=== PATIENT | male | born 1950 | race Caucasian/White ===

== ENCOUNTER 2017-10-15 18:56 | Emergency (ER) | payer OTHER ==
[2017-10-15] MEDS: AUGMENTIN 875 MG TAB PO (20:42)
[2017-10-15 20:53] LABS: BASO # 0.1 10^3/uL (0.0-0.2); BASO % 0.7 % (0.0-1.0); EOS # 0.3 10^3/uL (0.0-0.50); EOS % 2.5 % (0.0-3.0); HEMATOCRIT 40.6 % (42.0-52.0); IMMATURE GRANULOCYTE % 0.3 % (0-3.0); LYMPH # 3.6 10^3/uL (1.5-4.5); LYMPH % 34.8 % (24.0-44.0); MEAN CORPUSCULAR HEMOGLOBIN 30.2 pg (27.0-33.0); MEAN CORPUSCULAR HGB CONC 34.5 g/dl (32.0-36.5); MEAN CORPUSCULAR VOLUME 87.5 fl (80.0-96.0); MONO # 0.6 10^3/uL (0.0-0.8); MONO % 5.9 % (0.0-5.0); NEUTROPHILS # 5.8 10^3/uL (1.8-7.7); NEUTROPHILS % 55.8 % (36.0-66.0); PLATELET COUNT, AUTOMATED 245 10^3/uL (150-450); RED BLOOD COUNT 4.64 10^6/uL (4.30-6.10); RED CELL DISTRIBUTION WIDTH 12.6 % (11.5-14.5); WHITE BLOOD COUNT 10.4 10^3/uL (4.0-10.0)
[2017-10-15 21:15] LABS: ANION GAP 6 MEQ/L (8-16); BLOOD UREA NITROGEN 14 MG/DL (7-18); C REACTIVE PROTEIN QUANTITATIV 0.31 MG/DL (0.00-0.30); CALCIUM LEVEL 8.4 MG/DL (8.8-10.2); CARBON DIOXIDE LEVEL 31 MEQ/L (21-32); CHLORIDE LEVEL 104 MEQ/L (98-107); CREATININE FOR GFR 0.96 MG/DL (0.70-1.30); GLOMERULAR FILTRATION RATE > 60.0 (>49); GLUCOSE, FASTING 97 MG/DL (70-100); POTASSIUM SERUM 4.1 MEQ/L (3.5-5.1); SODIUM LEVEL 141 MEQ/L (136-145)
[2017-10-15 21:18] LABS: ERYTHROCYTE SEDIMENTATION RATE 9 mm/hr (0-20)
== END 2017-10-15 20:49 | disposition home or self-care (01) ==
LOC: M ED 18:56
DX: T81.4XXA Infection following a procedure, initial encounter (principal); C45.9 Mesothelioma, unspecified; I10 Essential (primary) hypertension; J44.9 Chronic obstructive pulmonary disease, unspecified; F17.210 Nicotine dependence, cigarettes, uncomplicated; Z85.828 Personal history of other malignant neoplasm of skin; Z79.899 Other long term (current) drug therapy
CPT/HCPCS: 80048

== ENCOUNTER → 2018-04-04 | Outpatient (REF) | payer OTHER ==
[2018-04-04 14:04] LABS: APPEARANCE, URINE CLEAR (CLEAR); BACTERIA, URINE AUTO NEGATIVE (NEGATIVE); BILIRUBIN, URINE AUTO NEGATIVE (NEGATIVE); BLOOD, URINE BLOOD NEGATIVE (NEGATIVE); COLOR, URINE YELLOW (YELLOW); GLUCOSE, URINE (UA) AUTO NEGATIVE (NEGATIVE); KETONE, URINE AUTO NEGATIVE (NEGATIVE); LEUKOCYTE ESTERASE, URINE AUTO NEGATIVE (NEGATIVE); NITRITE, URINE AUTO NEGATIVE (NEGATIVE); PROTEIN, URINE AUTO NEGATIVE (NEGATIVE); RBC, URINE AUTO 0 /HPF (0-3); SPECIFIC GRAVITY URINE AUTO 1.005 (1.002-1.035); SQUAMOUS EPITHELIAL CELL UR AU 0 /HPF (0-6); UROBILINOGEN, URINE AUTO 0.2 mg/dL (0.0-2.0); WBC, URINE AUTO 0 /HPF (0-3)
== END ==
LOC: M SMT 13:30
DX: R31.29 Other microscopic hematuria (principal)
CPT/HCPCS: 81001

== ENCOUNTER → 2018-05-10 | Outpatient (CLI) | payer OTHER ==
[~2018-05-10] MED LIST: ASPI1TAB PO; AUGM500T34 PO; BLOOD PRESSURE PO; BUSP5TA; HYDR-2808 PO; HYDR-3713 PO; HYDR12CA PO; LIPI80TA; MULT1TAB10 PO; OMEP20CA3 PO
--- NOTE | 2018-05-10 10:44 | REP ---
Prostate sonography: History: Elevated PSA Sonographic findings: Trans rectal prostate sonography demonstrates unremarkable seminal vesicles. Prostate gland is heterogeneously enlarged with calcifications and cystic changes noted. Glandular dimensions are measured at 4.6 x 3.0 x 4.7 cm with a calculated glandular volume of 34.2 ml. There is a 0.9 cm nodule and a 1.4 cm nodule to the right of midline. Transrectal sonographic guidance provided to Dr. Duff who performed trans rectal ultrasound guided needle biopsy procedure . Electronically Signed by Jatinder Markham MD 05/10/2018 10:35 A
== END ==
LOC: M SMT PRO 08:39 → M SMT 08:39
PROVIDERS: ATTEND Nurse Practitioner Women's Health
DX: C61 Malignant neoplasm of prostate (principal); R97.20 Elevated prostate specific antigen [PSA]
CPT/HCPCS: 52000; 55700; 76872; 76942; G0416

== ENCOUNTER → 2018-05-18 | Outpatient (REF) | payer OTHER ==
[2018-05-18 18:45] LABS: ANION GAP 4 MEQ/L (8-16); BLOOD UREA NITROGEN 18 MG/DL (7-18); CALCIUM LEVEL 8.7 MG/DL (8.8-10.2); CARBON DIOXIDE LEVEL 31 MEQ/L (21-32); CHLORIDE LEVEL 108 MEQ/L (98-107); CREATININE FOR GFR 0.98 MG/DL (0.70-1.30); GLOMERULAR FILTRATION RATE > 60.0 (>49); GLUCOSE, FASTING 86 MG/DL (70-100); POTASSIUM SERUM 4.2 MEQ/L (3.5-5.1); SODIUM LEVEL 143 MEQ/L (136-145)
[2018-05-18 18:54] LABS: HEMOGLOBIN 13.9 g/dl (13.5-17.5); MEAN CORPUSCULAR HEMOGLOBIN 30.5 pg (27.0-33.0); MEAN CORPUSCULAR HGB CONC 33.9 g/dl (32.0-36.5); MEAN CORPUSCULAR VOLUME 89.9 fl (80.0-96.0); PLATELET COUNT, AUTOMATED 233 10^3/uL (150-450); RED BLOOD COUNT 4.56 10^6/uL (4.30-6.10); RED CELL DISTRIBUTION WIDTH 12.6 % (11.5-14.5); WHITE BLOOD COUNT 10.3 10^3/uL (4.0-10.0)
[2018-05-18 19:07] LABS: INR 0.95; PROTHROMBIN TIME 12.8 SECONDS (12.1-14.4)
[2018-05-18 19:08] LABS: PARTIAL THROMBOPLASTIN TIME 27.8 SECONDS (25.4-37.6)
== END ==
LOC: M LABSMT 13:11
DX: Z01.818 Encounter for other preprocedural examination (principal); D49.4 Neoplasm of unspecified behavior of bladder; N39.0 Urinary tract infection, site not specified
CPT/HCPCS: 80048

== ENCOUNTER 2018-05-31 12:39 | Day surgery (SDC) | payer OTHER, MEDICARE ==
[~2018-05-31 12:39] MED LIST changes: -ASPI1TAB PO; -AUGM500T34 PO; -BLOOD PRESSURE PO; -BUSP5TA; -HYDR-2808 PO; -HYDR-3713 PO; -HYDR12CA PO; +LIDOCAINE 1% MDV 20ML VIAL SQ; -LIPI80TA; -MULT1TAB10 PO; -OMEP20CA3 PO
[2018-05-31] MEDS: LR 1,000 ML IV (14:09)
[2018-05-31] MEDS ORDERED: PROPOFOL 200 MG/20 ML VIAL As Ordered (15:24)
[2018-05-31] MEDS ORDERED: ROCURONIUM BROMIDE 50 MG/5 ML VIAL As Ordered (15:24)
[2018-05-31] MEDS ORDERED: ONDANSETRON 4MG/2ML VIAL (J2405) As Ordered (15:24)
[2018-05-31] MEDS ORDERED: LIDOCAINE 2% INJ 100 MG/5 ML SDV (FOR ANES.) As Ordered (15:24)
[2018-05-31] MEDS ORDERED: dexameTHASONE 4 MG/ML 1ML VIAL (J1100) As Ordered (15:24)
[2018-05-31] MEDS ORDERED: fentaNYL 100 MCG/2 ML INJECTION (J3010) As Ordered ×2 (15:25→16:18)
[2018-05-31] MEDS ORDERED: MIDAZOLAM INJ 2 MG/2 ML VIAL (J2250) As Ordered (15:25)
[2018-05-31] MEDS ORDERED: KETOROLAC 60 MG/2 ML VIAL (J1885) As Ordered (16:54)
[2018-05-31] MEDS ORDERED: LR 1,000 ML IV (17:30)
[2018-05-31] MEDS ORDERED: ONDANSETRON 4MG/2ML VIAL (J2405) IV (17:30)
[2018-05-31] MEDS ORDERED: ACETAMINOPHEN TAB 650MG DOSE (2X325MG) PO (17:30)
[2018-05-31] MEDS ORDERED: PERCOCET 5MG/325MG TAB PO (17:30)
[2018-05-31] MEDS ORDERED: fentaNYL 100 MCG/2 ML INJECTION (J3010) IV (17:30)
[2018-05-31] MEDS ORDERED: HYDROMORPHONE HCL 0.5 MG/ 0.5 ML SYRINGE (J1170 PER 1) IV (17:30)
== END 2018-05-31 19:15 | disposition home or self-care (01) ==
LOC: M SDC 19:15
DX: C67.9 Malignant neoplasm of bladder, unspecified (principal); I10 Essential (primary) hypertension; E78.00 Pure hypercholesterolemia, unspecified; K21.9 Gastro-esophageal reflux disease without esophagitis; R29.898 Other symptoms and signs involving the musculoskeletal system; M12.9 Arthropathy, unspecified; M54.9 Dorsalgia, unspecified; F41.9 Anxiety disorder, unspecified; F32.9 Major depressive disorder, single episode, unspecified; J41.0 Simple chronic bronchitis; G47.9 Sleep disorder, unspecified; C61 Malignant neoplasm of prostate; Z79.899 Other long term (current) drug therapy; Z79.82 Long term (current) use of aspirin; Z72.0 Tobacco use
CPT/HCPCS: 52234

== ENCOUNTER 2018-07-07 06:48 | Inpatient (IN) | payer OTHER, MEDICARE ==
[2018-07-07] VITALS (8 sets, daily range): BP systolic 124–142; BP diastolic 69–77
[~2018-07-07] VITALS: Ht 175.3 cm; Wt 72.9 kg
[~2018-07-07 06:48] MED LIST changes: +ASPI1TAB PO; +AUGM500T34 PO; +BLOOD PRESSURE PO; +BUSP5TA PO; +ECOT325T5 PO; +FERR325T3 PO; +HYDR-2808 PO; +HYDR-3713 PO; +HYDR12CA PO; -LIDOCAINE 1% MDV 20ML VIAL SQ; +LIPI80TA PO; +MULT1TAB10 PO; +OMEP20CA3 PO
[2018-07-07] MEDS ORDERED: LR 1,000 ML IV ONE (07:00)
[2018-07-07] MEDS ORDERED: HEPARIN SOD (PORCINE) 5000 UNITS/ML VIAL SQ ONE (07:00)
[2018-07-07] MEDS ORDERED: ROCURONIUM BROMIDE 50 MG/5 ML VIAL As Ordered ONE ×3 (07:45→11:18)
[2018-07-07] MEDS ORDERED: MIDAZOLAM INJ 2 MG/2 ML VIAL (J2250) As Ordered ONE (07:45)
[2018-07-07] MEDS ORDERED: HYDROmorphone HCL 2 MG/ML 1ML VIAL (J1170) As Ordered ONE (07:45)
[2018-07-07] MEDS ORDERED: fentaNYL 250 MCG/5 ML INJECTION (J3010) As Ordered ONE (07:45)
[2018-07-07] MEDS ORDERED: LIDOCAINE 2% INJ 100 MG/5 ML SDV (FOR ANES.) As Ordered ONE (07:45)
[2018-07-07] MEDS ORDERED: PROPOFOL 200 MG/20 ML VIAL As Ordered ONE (07:45)
[2018-07-07] MEDS ORDERED: dexameTHASONE 4 MG/ML 1ML VIAL (J1100) As Ordered ONE (07:46)
[2018-07-07] MEDS ORDERED: ONDANSETRON 4MG/2ML VIAL (J2405) As Ordered ONE (07:46)
[2018-07-07] MEDS ORDERED: PERCOCET 5MG/325MG TAB PO PRN (08:30)
[2018-07-07] MEDS ORDERED: MORPHINE 4 MG/ML 1ML VIAL/SYRINGE (J2270) IV PRN (08:30)
[2018-07-07] MEDS ORDERED: ONDANSETRON 4MG/2ML VIAL (J2405) IV PRN ×3 (08:30→19:45)
[2018-07-07] MEDS ORDERED: BUPIVACAINE HCL 0.25% 30 ML VIAL As Ordered ONE (08:38)
[2018-07-07] MEDS ORDERED: LIDOCAINE 1% SDV INJ 30 ML VIAL As Ordered ONE (08:38)
[2018-07-07] MEDS: DOCUSATE SODIUM 100 MG CAP PO SCH ×2 (09:00→20:04)
[2018-07-07] MEDS ORDERED: HEPARIN SOD (PORCINE) 5000 UNITS/ML VIAL As Ordered ONE (09:14)
[2018-07-07] MEDS ORDERED: LABETALOL HCL 100 MG/20 ML VIAL As Ordered ONE (09:15)
[2018-07-07] MEDS ORDERED: SUGAMMADEX SODIUM 500 MG/5 ML VIAL (BRIDION) As Ordered ONE (13:40)
[2018-07-07] MEDS: HEPARIN SOD (PORCINE) 5000 UNITS/ML VIAL SC SCH ×2 (14:00→20:04)
[2018-07-07] MEDS ORDERED: fentaNYL 100 MCG/2 ML INJECTION (J3010) As Ordered ONE (14:53)
[2018-07-07] MEDS: fentaNYL 100 MCG/2 ML INJECTION (J3010) IV PRN ×4 (14:55→15:30)
[2018-07-07] MEDS ORDERED: LR 1,000 ML IV SCH ×2 (15:00→19:45)
--- NOTE | 2018-07-07 15:16 | ROOPDOC ---
[facility] Report Of Operation Report of Operation DATE OF PROCEDURE: 07/07/18 PREPROCEDURE DIAGNOSIS: Prostate cancer. POSTPROCEDURE DIAGNOSIS: Prostate cancer. PROCEDURE: Robotic-assisted laparoscopic radical prostatectomy with bilateral pelvic lymph node dissection, Lysis of adhesions. SURGEON: Dilma Adorno MD FIRST AID TEACHER: Emily Giron NP ANESTHESIA: General. OPERATIVE INDICATIONS: This is a 68 year old M with clinical stage T2b Shantel 4+3 prostate cancer, here today for treatment. DESCRIPTION OF PROCEDURE: The patient was brought to the operating room and general anesthesia was induced. Prophylactic antibiotics were infused. He was then placed in the dorsal lithotomy position and prepped and draped in the usual sterile fashion. At this point, a Huynh catheter was inserted into the bladder and the balloon was filled with 10 mL of sterile water. We then made a midline incision just above the umbilicus for a 12 mm port. A Veress needle was utilized to achieve pneumoperitoneum. Next, a 12 mm port was inserted into the incision and subsequently a camera was inserted. There were no injuries from the Veress needle or initial trocar placement. At this point, we placed the remaining ports, including a 12 mm health assistant port and then three robotic ports in the usual W configuration. Once all the ports were placed, the robot was docked. Lysis of adhesions between the sigmoid colon and abdominal wall was then performed. The bladder was then released from the anterior abdominal wall using electrocautery. Releasing the bladder took a significant amount of time as the bladder was adhesed bilateral to mesh placed during the patient's prior inguinal hernia repair. Once the bladder was dropped, the fat overlying the prostate was cleared using electrocautery. Next, the superficial dorsal vein was controlled with electrocautery. The endopelvic fascia was opened on both sides and the dorsal venous complex was cleared. Next, a #0 Vicryl [id number] stitch was placed around the dorsal venous complex. Once that was done, the bladder was opened and dissected away from the prostate. At this point, the prostate was lifted up. The vasa deferentia were identified in the midline. They were controlled with electrocautery and then transected. The seminal vesicles were also dissected off bilaterally. The rectum was safely mobilized away from the prostate. The patient opted not to have a nerve-sparing procedure. At this point, bilateral prostatic pedicles and neurovascular bundles with Weck clips and were then transected. The pedicles were carried towards the apex. After taking care of the pedicles and mobilizing the rectum off the prostate below, the prostate was only connected by the urethra. At this point, the dorsal venous complex was transected with electrocautery. The urethra was then opened and the catheter was withdrawn and the posterior urethra was transected, thus freeing the prostate. At this point, we checked for hemostasis and it did appear very good. Next, we performed bilateral pelvic lymph node dissection. This was done in a standard fashion. The limits of dissection were the iliac vein proximally, the obturator nerve distally, the pelvic sidewall laterally, and the bladder medially. All lymphatic tissue within these limits was removed. I performed the same procedure on both the right and left sides. Hemostasis was then obtained with a combination of bipolar electrocautery and Weck clips. The lymphatic packets were then placed in separate Endo Catch bags for future retrieval. Once hemostasis was confirmed, I then moved on to perform the vesicourethral anastomosis. This was performed with a Quill stitch in a running fashion. Of note, this was very difficult because of a very narrow pelvis. Once this was done, the final #20-Nigerien Huynh catheter was placed. The balloon was filled with 15 mL of sterile water. Upon completion of the vesicourethral anastomosis, it was tested by filling the bladder with 120 mL of sterile water and it was watertight. At this point, the prostate and seminal vesicles were placed in an Endo Catch bag for future retrieval. The robot was then undocked. A Tamika fascial closure device was utilized to place a #0 Vicryl suture between the fascia of the 12 mm health assistant port. At this point, a Cesar- Rudd drain was brought in through the left robotic port skin site and the drain was positioned anterior to the bladder. The drain was secured to the skin with #2-0 Ethilon suture. Next, all the remaining ports were removed and there did not appear to be any bleeding from any of the port sites. The prostate, as well as the lymphatic packets were then extracted from the 12 mm camera port site after the skin was extended. The fascia in this incision was then closed with a running #0 Vicryl stitch. The previously placed #0 Vicryl free ties through the health assistant port were then tied down and all incisions were irrigated. Last, all of the incisions were closed with running subcuticular #4-0 Monocryl sutures. Local anesthesia was applied. Dermabond was then applied to the incisions. This marked the conclusion of the procedure. The patient was then taken out of the dorsal lithotomy position, awakened from anesthesia and transported to the recovery room in stable condition. ESTIMATED BLOOD LOSS: 300 mL. COMPLICATIONS: None. SPECIMENS: Prostate and seminal vesicles, right pelvic lymph nodes, left pelvic lymph nodes. PLAN: The patient will be admitted to the hospital postoperatively, and he will likely be discharged home within the next 1-2 days. DILMA ADORNO MD Jul 07, 2018 15:16
[2018-07-07] MEDS ORDERED: MORPHINE 10 MG/ML 1ML VIAL (J2270) As Ordered ONE (15:39)
[2018-07-07] MEDS: MORPHINE 10 MG/ML 1ML VIAL (J2270) IV PRN ×5 (15:44→16:35)
[2018-07-07 15:51] LABS: HEMATOCRIT 39.3 % (42.0-52.0); HEMOGLOBIN 13.1 g/dl (13.5-17.5); MEAN CORPUSCULAR HEMOGLOBIN 30.4 pg (27.0-33.0); MEAN CORPUSCULAR HGB CONC 33.3 g/dl (32.0-36.5); MEAN CORPUSCULAR VOLUME 91.2 fl (80.0-96.0); PLATELET COUNT, AUTOMATED 199 10^3/uL (150-450); RED BLOOD COUNT 4.31 10^6/uL (4.30-6.10); WHITE BLOOD COUNT 18.1 10^3/uL (4.0-10.0)
[2018-07-07 16:06] LABS: BLOOD UREA NITROGEN 18 MG/DL (7-18); CALCIUM LEVEL 8.1 MG/DL (8.8-10.2); CARBON DIOXIDE LEVEL 28 MEQ/L (21-32); CHLORIDE LEVEL 107 MEQ/L (98-107); CREATININE FOR GFR 1.05 MG/DL (0.70-1.30); GLOMERULAR FILTRATION RATE > 60.0 (>42); GLUCOSE, FASTING 157 MG/DL (70-100); POTASSIUM SERUM 4.3 MEQ/L (3.5-5.1); SODIUM LEVEL 140 MEQ/L (136-145)
[2018-07-07] MEDS: NS 1,000 ML IV SCH ×2 (16:21→17:30)
[2018-07-07] MEDS: OMEPRAZOLE 20 MG CAP PO SCH (17:19)
[2018-07-07] MEDS: ceFAZolin SOD 1 GM in D5W MINI-BAG PLUS 50 ML IV SCH (17:30)
[2018-07-07] MEDS ORDERED: MORPHINE 10 MG/ML 1ML VIAL (J2270) IV PRN (19:45)
[2018-07-07] MEDS ORDERED: fentaNYL 100 MCG/2 ML INJECTION (J3010) IV PRN (19:45)
[2018-07-07] MEDS: busPIRone 5 MG TAB PO SCH (20:04)
[2018-07-07] MEDS: ACETAMINOPHEN TAB 650MG DOSE (2X325MG) PO PRN (20:24)
[2018-07-07] MEDS: PERCOCET 5MG/325MG TAB PO PRN (23:41)
[2018-07-08] MEDS: ceFAZolin SOD 1 GM in D5W MINI-BAG PLUS 50 ML IV SCH (01:35)
[2018-07-08] MEDS: NS 1,000 ML IV SCH ×2 (01:35→08:21)
[2018-07-08 02:00] VITALS: BP 142/75
[2018-07-08 06:00] VITALS: BP 128/68
[2018-07-08 06:05] LABS: BLOOD UREA NITROGEN 13 MG/DL (7-18); CALCIUM LEVEL 7.4 MG/DL (8.8-10.2); CARBON DIOXIDE LEVEL 26 MEQ/L (21-32); CHLORIDE LEVEL 107 MEQ/L (98-107); CREATININE FOR GFR 0.88 MG/DL (0.70-1.30); GLOMERULAR FILTRATION RATE > 60.0 (>42); GLUCOSE, FASTING 111 MG/DL (70-100); HEMATOCRIT 33.1 % (42.0-52.0); MEAN CORPUSCULAR HEMOGLOBIN 30.3 pg (27.0-33.0); MEAN CORPUSCULAR HGB CONC 33.2 g/dl (32.0-36.5); MEAN CORPUSCULAR VOLUME 91.2 fl (80.0-96.0); PLATELET COUNT, AUTOMATED 172 10^3/uL (150-450); POTASSIUM SERUM 3.8 MEQ/L (3.5-5.1); RED BLOOD COUNT 3.63 10^6/uL (4.30-6.10); SODIUM LEVEL 139 MEQ/L (136-145); WHITE BLOOD COUNT 11.9 10^3/uL (4.0-10.0)
[2018-07-08] MEDS: OMEPRAZOLE 20 MG CAP PO SCH ×2 (07:00→18:06)
[2018-07-08] MEDS: HEPARIN SOD (PORCINE) 5000 UNITS/ML VIAL SC SCH ×3 (07:00→21:26)
[2018-07-08] MEDS: PERCOCET 5MG/325MG TAB PO PRN (07:04)
[2018-07-08] MEDS: CIPROFLOXACIN 500 MG TAB PO SCH (07:30)
[2018-07-08] MEDS: DOCUSATE SODIUM 100 MG CAP PO SCH ×2 (08:38→21:26)
[2018-07-08] MEDS: ATORVASTATIN 20 MG TAB PO SCH (08:38)
[2018-07-08] MEDS: hydroCHLOROthiazide 12.5 MG CAPSULE PO SCH (08:38)
[2018-07-08] MEDS ORDERED: NORCO, ANEXSIA 5/325MG TABLET (HYDROcodone/ACETAMINOPHEN) PO PRN (08:45)
[2018-07-08 10:00] VITALS: BP 121/69
--- NOTE | 2018-07-08 10:04 | IPNPDOC ---
Assessment/Plan Date Seen The patient was seen on 07/08/18. Patient Summary This is a 68 y/o M POD1 s/p RALP w/ BPLND and MIHAELA. He is doing well. Labs unremarkable. UOP has been good. Will change pain meds to norco as he takes this at home and works better for him. Plan/VTE VTE Prophylaxis Ordered?: Yes VTE Exclusion Mechanical Proph: N/A:VTE Prophy Ordered VTE Exclusion Pharmacological: N/A:VTE Prophy Ordered Plan/Urinary Catheter Urinary Catheter: Other Catheter: (catheter to stay in for 7-10 days for healing of the vesicourethral anastomosis) Plan - d/c IVF - strict I/Os - norco prn pain - cipro prophyaxis - cont home meds - SCDs when in bed - SQH - incentive spirometry - ambulate - likely discharge home later today w/ catheter (will d/c VIVIANA drain prior to discharge) Subjective Review oF Systems Chief Complaint The patient is a 68-year-old male admitted with a reason for visit of Prostate Cancer. Events since Last Encounter No acute events o/n. Patient notes moderate pain control w/ percocet. No n/v. No flatus yet. Has not ambulated yet. No f/c/ns. Objective Physical Examination General Exam: Alert, Cooperative, No Acute Distress ABDOMEN EXAM: Other (soft, mild tenderness; incisions clean/dry/intact; VIVIANA w/ serosang output) Skin Exam: Nl turgor and temperature Neuro Exam: Normal Speech Psych Exam: Mental status NL, Mood NL Other physical findings catheter in place, draining clear urine Vital Signs/I&O Vital Signs Date Time Temp Pulse Resp B/P (MAP) Pulse Ox O2 Delivery O2 Flow Rate FiO2 07/08/18 07:34 18 07/08/18 06:00 98.3 83 128/68 (88) 97 Nasal Cannula 2.0 07/08/18 02:00 98 I&O- Last 24 Hours up to 6 AM 07/08/18 06:00 Intake Total 2925 ml Output Total 1280 ml Balance 1645 ml Laboratory Data Labs 24H Laboratory Tests 2 07/07/18 15:38: Nucleated Red Blood Cells % (auto) 0.0, Anion Gap 5L, Glomerular Filtration Rate > 60.0, Blood Urea Nitrogen 18, Creatinine 1.05, Sodium Level 140, Potassium Level 4.3, Chloride Level 107, Carbon Dioxide Level 28, Calcium Level 8.1L 07/08/18 05:37: Nucleated Red Blood Cells % (auto) 0.0, Anion Gap 6L, Glomerular Filtration Rate > 60.0, Blood Urea Nitrogen 13, Creatinine 0.88, Sodium Level 139, Potassium Level 3.8, Chloride Level 107, Carbon Dioxide Level 26, Calcium Level 7.4L 07/08/18 05:42: Bedside Glucose (Misc Panel) 107 CBC/BMP Laboratory Tests 07/07/18 15:38 Red Blood Count 4.31, Mean Corpuscular Volume 91.2, Mean Corpuscular Hemoglobin 30.4, Mean Corpuscular Hemoglobin Concent 33.3, Red Cell Distribution Width 12.6, Calcium Level 8.1 L 07/08/18 05:37 Red Blood Count 3.63 L, Mean Corpuscular Volume 91.2, Mean Corpuscular Hemoglobin 30.3, Mean Corpuscular Hemoglobin Concent 33.2, Red Cell Distribution Width 12.9, Calcium Level 7.4 L FSBS Laboratory Tests Test 07/08/18 05:42 Range/Units Bedside Glucose (Misc Panel) 107 83-110 MG/DL DILMA ADORNO MD Jul 08, 2018 10:04
[2018-07-08] MEDS: NORCO, ANEXSIA 5/325MG TABLET (HYDROcodone/ACETAMINOPHEN) PO PRN ×2 (11:06→15:11)
[2018-07-08] MEDS ORDERED: KETOROLAC 30 MG/ML VIAL (J1885) IV ONE (13:00)
[2018-07-08 14:00] VITALS: BP 96/48
[2018-07-08] MEDS ORDERED: NORCOTAB PO (15:56)
[2018-07-08] MEDS ORDERED: CIPR-249 PO (16:05)
[2018-07-08] MEDS ORDERED: COLA100C5 PO (16:05)
[2018-07-08] MEDS ORDERED: ACET1TAB55 PO (16:05)
[2018-07-08] MEDS: KETOROLAC 30 MG/ML VIAL (J1885) IV SCH (19:55)
[2018-07-08] MEDS: busPIRone 5 MG TAB PO SCH (21:26)
[2018-07-08 22:00] VITALS: BP 117/59
[2018-07-09] MEDS: KETOROLAC 30 MG/ML VIAL (J1885) IV SCH ×4 (01:30→18:37)
[2018-07-09 02:00] VITALS: BP 120/62
[2018-07-09] MEDS: NORCO, ANEXSIA 5/325MG TABLET (HYDROcodone/ACETAMINOPHEN) PO PRN (04:04)
[2018-07-09 06:00] VITALS: BP 138/65
[2018-07-09 06:22] LABS: HEMATOCRIT 31.8 % (42.0-52.0); HEMOGLOBIN 10.8 g/dl (13.5-17.5); MEAN CORPUSCULAR HEMOGLOBIN 30.8 pg (27.0-33.0); MEAN CORPUSCULAR VOLUME 90.6 fl (80.0-96.0); PLATELET COUNT, AUTOMATED 151 10^3/uL (150-450); RED BLOOD COUNT 3.51 10^6/uL (4.30-6.10); WHITE BLOOD COUNT 11.7 10^3/uL (4.0-10.0)
[2018-07-09] MEDS: CIPROFLOXACIN 500 MG TAB PO SCH (06:22)
[2018-07-09] MEDS: HEPARIN SOD (PORCINE) 5000 UNITS/ML VIAL SC SCH ×3 (06:22→21:25)
[2018-07-09] MEDS: OMEPRAZOLE 20 MG CAP PO SCH ×2 (06:22→18:38)
[2018-07-09 06:42] LABS: BLOOD UREA NITROGEN 16 MG/DL (7-18); CALCIUM LEVEL 7.8 MG/DL (8.8-10.2); CARBON DIOXIDE LEVEL 27 MEQ/L (21-32); CHLORIDE LEVEL 109 MEQ/L (98-107); CREATININE FOR GFR 0.66 MG/DL (0.70-1.30); GLOMERULAR FILTRATION RATE > 60.0 (>42); GLUCOSE, FASTING 100 MG/DL (70-100); POTASSIUM SERUM 3.7 MEQ/L (3.5-5.1); SODIUM LEVEL 141 MEQ/L (136-145)
[2018-07-09] MEDS: ATORVASTATIN 20 MG TAB PO SCH (08:04)
[2018-07-09] MEDS: hydroCHLOROthiazide 12.5 MG CAPSULE PO SCH (08:04)
[2018-07-09] MEDS: DOCUSATE SODIUM 100 MG CAP PO SCH ×2 (08:04→21:24)
[2018-07-09] MEDS ORDERED: FLUBLOK(EGG FREE)(QUAD)INFLUENZA VACC 0.5ML SYRINGE (90682)18YRS&OLDER IM ONE (09:00)
[2018-07-09 10:00] VITALS: BP 122/65
--- NOTE | 2018-07-09 11:39 | IPNPDOC ---
Assessment/Plan Date Seen The patient was seen on 07/09/18. Patient Summary This is a 68 y/o M POD2 s/p RALP w/ BPLND. His pain is improved today w/ toradol added on. He now has a productive cough and is not maintaining his O2 sat off of O2 while ambulating. Hb is stable. Cr is normal. Good UOP. Expected VIVIANA drain output. Plan/VTE VTE Prophylaxis Ordered?: Yes VTE Exclusion Mechanical Proph: N/A:VTE Prophy Ordered VTE Exclusion Pharmacological: N/A:VTE Prophy Ordered Plan/Urinary Catheter Urinary Catheter: Other Catheter: (catheter to stay in for 7-10 days for healing of the vesicourethral anastomosis) Plan - VIVIANA drain removed - CXR - send sputum for culture - attempt to wean O2 as tolerated - cont home meds - cipro prophylaxis for indwelling catheter - strict I/Os - SCDs when in bed - SQH - incentive spirometry - regular diet - possible discharge home today pending CXR result and patient's ability to be weaned off O2 Subjective Review oF Systems Chief Complaint The patient is a 68-year-old male admitted with a reason for visit of Prostate Cancer. Events since Last Encounter No acute events o/n. Patient was noted to desat to the mid 80s while ambulating w/ O2 off. He noted mild SOB w/ ambulation. He also notes a new productive cough. He denies chest pain. He denies n/v. Denies f/c/ns. He notes that his pain is better controlled today. Objective Physical Examination General Exam: Alert, Cooperative, No Acute Distress ABDOMEN EXAM: Other (soft, mild tenderness; incisions clean/dry/intact) Skin Exam: Nl turgor and temperature Neuro Exam: Normal Speech Psych Exam: Mental status NL, Mood NL Other physical findings catheter in place, draining clear urine Vital Signs/I&O Vital Signs Date Time Temp Pulse Resp B/P (MAP) Pulse Ox O2 Delivery O2 Flow Rate FiO2 07/09/18 10:00 97.6 78 18 122/65 (84) 90 Nasal Cannula 2.0 07/08/18 02:00 98 I&O- Last 24 Hours up to 6 AM 07/09/18 06:00 Intake Total 1250 ml Output Total 1785 ml Balance -535 ml Laboratory Data Labs 24H Laboratory Tests 2 07/09/18 05:47: Nucleated Red Blood Cells % (auto) 0.0, Anion Gap 5L, Glomerular Filtration Rate > 60.0, Blood Urea Nitrogen 16, Creatinine 0.66L, Sodium Level 141, Potassium Level 3.7, Chloride Level 109H, Carbon Dioxide Level 27, Calcium Level 7.8L CBC/BMP Laboratory Tests 07/09/18 05:47 Red Blood Count 3.51 L, Mean Corpuscular Volume 90.6, Mean Corpuscular Hemoglobin 30.8, Mean Corpuscular Hemoglobin Concent 34.0, Red Cell Distribution Width 12.6, Calcium Level 7.8 L DILMA ADORNO MD Jul 09, 2018 11:39
[2018-07-09] MEDS: ACETAMINOPHEN TAB 650MG DOSE (2X325MG) PO PRN (12:06)
--- NOTE | 2018-07-09 12:50 | REP ---
Clinical: Productive cough. Technique: PA and lateral. Comparison: 12/27/2012. Findings: Ill-defined areas of opacity involve the right lower lung zone along with blunting to the bilateral costophrenic angles and diaphragmatic surfaces suggesting pleural reactions. Partially calcified pleural plaques along the right diaphragmatic surface are also suspected. No pneumothorax. Cardiac silhouette is normal. Skeletal structures intact. Impression: Ill-defined areas of opacity primarily involving the right mid to lower lung zone along with bibasilar fibroatelectatic changes and small pleural reactions. Electronically Signed by Bam Hunter MD 07/09/2018 12:41 P
[2018-07-09 14:00] VITALS: BP 117/58
[2018-07-09] MEDS ORDERED: ISOVUE-370 76% 100ML VIAL (Q9967) As Ordered ONE (15:05)
--- NOTE | 2018-07-09 15:35 | REP ---
Clinical: Hypoxia. Technique: Axial contrast enhanced images from the thoracic inlet to the upper abdomen multiplanar re-formations using pulmonary embolus technique with 100 ml Isovue 370 intravenous contrast material. Findings: Suboptimal enhancement of the pulmonary vasculature is noted, but no obvious pulmonary arterial filling defects are identified to suggest pulmonary embolus. Moderate right lower lobe atelectasis along with mild left basilar atelectasis and small right pleural effusion is identified. Mild/moderate emphysematous changes a long with bronchiectasis are suggested. No pneumothorax. Tracheobronchial tree is patent. The mediastinum demonstrates atherosclerotic changes to the thoracic aorta and coronary arteries without aortic aneurysm or cardiomegaly. No pericardial effusion. No obvious adenopathy. There is a moderate amount of subcutaneous emphysema in the subcutaneous tissues of the visualized anterolateral lower chest wall and upper abdomen as well as small amount of pneumoperitoneum. These findings require correlation and differential diagnosis would include bowel perforation as well as possible postoperative changes. High density material along the diaphragmatic surfaces may reflect partially calcified pleural plaques although these may be along the undersurface of the diaphragm and reflect small amounts of extravasated contrast and again require correlation. Impression: 1. No obvious pulmonary embolus. Moderate right lower lobe atelectasis along with trace left basilar atelectasis and small right pleural effusion. 2. Subcutaneous emphysema along the anterolateral lower chest and upper abdomen. 3. Small amount of subcutaneous emphysema in the visualized upper abdomen raising the possibility of perforation versus postoperative change. 4. Partially calcified pleural plaques versus small amount of extravasated contrast material along the undersurface of the diaphragm. No recent chest or abdominopelvic CT available for comparison or correlation. Electronically Signed by Bam Hunter MD 07/09/2018 03:26 P
--- NOTE | 2018-07-09 16:38 | CR ---
DATE OF CONSULTATION: 07/09/2018 REQUESTING ATTENDING PHYSICIAN: Dr. Jonh Duff, urologist REASON FOR CONSULTATION: Coughing, shortness of breath, and pleuritic chest pain. HISTORY OF PRESENT ILLNESS: The patient is a 68-year-old white male with several chronic medical conditions and admitted to the hospital on 07/07/2018 due to prostate cancer and he was admitted to the urology service. He underwent surgical treatment for his prostate cancer. He was planned to be discharged home today. However, in the last 1 or 2 days, he developed shortness of breath with some coughing with greenish phlegm. Also, the oxygen was down to 89% on room air. He has a history of chronic obstructive pulmonary disease (COPD), but he did not use oxygen supplement at home. Medicine service was called for consult. REVIEW OF SYSTEMS: Denies fever, no chills. Mild headache, but no blurred vision. Positive shortness of breath. Positive coughing with greenish-yellowish phlegm. Positive pleuritic chest pain. No nausea, no vomiting. Constipation, but no diarrhea. Also has abdominal pain which is related to his recent prostate cancer surgery. All other systems reviewed, but negative. PAST MEDICAL HISTORY: 1. Hypertension. 2. Dyslipidemia. 3. COPD, not on oxygen supplement. 4. Prostate cancer. PAST SURGICAL HISTORY: Hernia repair, appendectomy, and recent surgery for his prostate cancer. ALLERGIES: No known drug allergies. SOCIAL HISTORY: He is an ongoing tobacco user, one pack a day for more than 50 years. No alcohol abuse. No illicit drug abuse. He is a FULL CODE. MEDICATIONS: Currently in the hospital: - Lipitor 80 mg by mouth daily - hydrochlorothiazide 12.5 mg by mouth daily - Cipro 500 once a day - BuSpar 5 mg by mouth daily - omeprazole 40 mg by mouth daily - heparin subcutaneous for deep venous thrombosis (DVT) prophylaxis - morphine for the pain PHYSICAL EXAMINATION: VITAL SIGNS: Temperature 97.6, heart rate 78, respiratory rate 18, blood pressure 120/65, oxygen saturation 90% on two liters oxygen supplement. GENERAL: He is awake, alert, oriented times three. He is not in acute distress. HEENT: Atraumatic. Pupils equal, round, reactive to light. No jaundice. Extraocular muscles intact. Ears, nose, and throat normal. Mouth: Mucosa a little bit dry. NECK: No jugular venous distention (JVD), no bruits. LUNGS: Decreased breath sounds, mild wheezing, small basal crackles. HEART: S1, S2, regular, no murmur. ABDOMEN: Soft, bowel sounds positive, mild tenderness, but no rebound. His surgical wound looks okay and he has a Huynh catheter in place. No edema in bilateral lower extremities. SKIN: No rash. PSYCHOLOGIC: No acute psychosis. DIAGNOSTIC AND LABORATORIES: Include the following: CBC and differential: WBC 11.7, hemoglobin and hematocrit 10.8/32, platelets 151, sodium 141, potassium 3.7, chloride 109, bicarbonate 27, BUN 16, creatinine 0.9, glucose 100. Chest x-ray reviewed and CT angiogram of chest which did not show evidence of pulmonary embolus (PE), but demonstrated some infiltrate in the right lower lobe. IMPRESSION: 1. Acute respiratory failure. 2. Chronic obstructive pulmonary disease (COPD) exacerbation which is mild. 3. Pneumonia. 4. Hypertension. 5. Status post prostate cancer surgery. PLAN: I will treat him with IV Zosyn, oral prednisone, nebulizer for chronic obstructive pulmonary disease (COPD) and pneumonia. Will do a methicillin-resistant Staphylococcus aureus (MRSA) screen. Will give him spirometer for atelectasis prophylaxis. Dr. Nelson from medicine service will follow with you.
[2018-07-09 18:00] VITALS: BP 135/67
[2018-07-09] MEDS: PIPERACILLIN/TAZOBACTAM SOD 3.375 GM in D5W MINI-BAG PLUS 50 ML IV SCH (18:37)
[2018-07-09] MEDS: predniSONE 10 MG TAB PO SCH (18:38)
[2018-07-09] MEDS: IPRATROPIUM 0.5MG/ALBUTEROL 2.5MG INH SOL UD 3ML (DUONEB)(J7620) NEB SCH (20:05)
[2018-07-09] MEDS: busPIRone 5 MG TAB PO SCH (21:24)
[2018-07-09 22:00] VITALS: BP 110/58
[2018-07-10] MEDS: PIPERACILLIN/TAZOBACTAM SOD 3.375 GM in D5W MINI-BAG PLUS 50 ML IV SCH ×5 (00:01→21:26)
[2018-07-10] MEDS: KETOROLAC 30 MG/ML VIAL (J1885) IV SCH ×4 (01:27→19:58)
[2018-07-10] MEDS: HEPARIN SOD (PORCINE) 5000 UNITS/ML VIAL SC SCH ×3 (04:56→21:26)
[2018-07-10] MEDS: OMEPRAZOLE 20 MG CAP PO SCH ×2 (04:56→17:07)
[2018-07-10 06:00] VITALS: BP 129/62
[2018-07-10] MEDS: IPRATROPIUM 0.5MG/ALBUTEROL 2.5MG INH SOL UD 3ML (DUONEB)(J7620) NEB SCH ×4 (06:17→20:17)
[2018-07-10 06:23] LABS: HEMATOCRIT 31.8 % (42.0-52.0); MEAN CORPUSCULAR HEMOGLOBIN 30.2 pg (27.0-33.0); MEAN CORPUSCULAR HGB CONC 34.6 g/dl (32.0-36.5); MEAN CORPUSCULAR VOLUME 87.4 fl (80.0-96.0); PLATELET COUNT, AUTOMATED 185 10^3/uL (150-450); RED BLOOD COUNT 3.64 10^6/uL (4.30-6.10); WHITE BLOOD COUNT 10.1 10^3/uL (4.0-10.0)
[2018-07-10 06:41] LABS: BLOOD UREA NITROGEN 15 MG/DL (7-18); CALCIUM LEVEL 8.1 MG/DL (8.8-10.2); CARBON DIOXIDE LEVEL 27 MEQ/L (21-32); CHLORIDE LEVEL 109 MEQ/L (98-107); CREATININE FOR GFR 0.72 MG/DL (0.70-1.30); GLOMERULAR FILTRATION RATE > 60.0 (>42); GLUCOSE, FASTING 125 MG/DL (70-100); POTASSIUM SERUM 3.8 MEQ/L (3.5-5.1); SODIUM LEVEL 142 MEQ/L (136-145)
[2018-07-10] MEDS: ATORVASTATIN 20 MG TAB PO SCH (08:45)
[2018-07-10] MEDS: hydroCHLOROthiazide 12.5 MG CAPSULE PO SCH (08:45)
[2018-07-10] MEDS: predniSONE 10 MG TAB PO SCH (08:45)
[2018-07-10] MEDS: DOCUSATE SODIUM 100 MG CAP PO SCH ×2 (08:45→19:58)
--- NOTE | 2018-07-10 11:36 | IPNPDOC ---
Assessment/Plan Date Seen The patient was seen on 07/10/18. Patient Summary This is a 68 y/o M POD3 s/p RALP w/ BPLND, now also diagnosed w/ pneumonia and COPD exacerbation. The hospitalist service is following and have him on zosyn and prednisone. Sputum culture from yesterday is pending. Blood cultures were obtained today. A CT chest done yesterday was negative for PE. WBC, Hb, Cr are unremarkable. UOP has been good. Plan/VTE VTE Prophylaxis Ordered?: Yes VTE Exclusion Mechanical Proph: N/A:VTE Prophy Ordered VTE Exclusion Pharmacological: N/A:VTE Prophy Ordered Plan/Urinary Catheter Urinary Catheter: Other Catheter: (catheter to stay in for 7-10 days for healing of the vesicourethral anastomosis) Plan - appreciate hospitalist service consult - cont zosyn and prednisone; follow up sputum and blood cultures - cont home meds - norco prn pain w/ scheduled toradol - strict I/Os - SCDs when in bed - SQH - incentive spirometry - ambulate - regular diet Subjective Review oF Systems Chief Complaint The patient is a 68-year-old male admitted with a reason for visit of Prostate Cancer. Events since Last Encounter Patient was not discharged yesterday due to likely pneumonia and COPD exacerbation. He notes that he is still SOB w/ ambulation off O2, but notes that it is improved from yesterday. Denies chest pain. Incisional pain is improved. Tolerating a regular diet. No n/v. No f/c/ns. Objective Physical Examination General Exam: Alert, Cooperative, No Acute Distress ABDOMEN EXAM: Other (soft, nontender; incisions clean/dry/intact) Skin Exam: Nl turgor and temperature Neuro Exam: Normal Speech Psych Exam: Mental status NL, Mood NL Other physical findings catheter in place, draining clear urine Vital Signs/I&O Vital Signs Date Time Temp Pulse Resp B/P (MAP) Pulse Ox O2 Delivery O2 Flow Rate FiO2 07/10/18 10:00 2.0 07/10/18 06:00 98.6 86 18 129/62 (84) 96 Nasal Cannula 07/08/18 02:00 98 I&O- Last 24 Hours up to 6 AM 07/10/18 06:00 Intake Total 1070 ml Output Total 1225 ml Balance -155 ml Laboratory Data Labs 24H Laboratory Tests 2 07/10/18 05:55: Nucleated Red Blood Cells % (auto) 0.0, Anion Gap 6L, Glomerular Filtration Rate > 60.0, Blood Urea Nitrogen 15, Creatinine 0.72, Sodium Level 142, Potassium Level 3.8, Chloride Level 109H, Carbon Dioxide Level 27, Calcium Level 8.1L 07/10/18 10:30: Lactic Acid Level 1.5, C-Reactive Protein, Quantitative 8.30H CBC/BMP Laboratory Tests 07/10/18 05:55 Red Blood Count 3.64 L, Mean Corpuscular Volume 87.4, Mean Corpuscular Hemoglobin 30.2, Mean Corpuscular Hemoglobin Concent 34.6, Red Cell Distribution Width 12.2, Calcium Level 8.1 L Microbiology Microbiology 07/10/18 Blood Culture, Received Pending 07/10/18 Blood Culture, Received Pending 07/09/18 MRSA Screen, Received Pending 07/09/18 Gram Stain - Final, Resulted 07/09/18 Sputum Culture, Resulted Pending DILMA ADORNO MD Jul 10, 2018 11:36
--- NOTE | 2018-07-10 13:39 | IPNPDOC ---
Text Note Date of Service The patient was seen on 07/10/18. NOTE Subjective: Patient states his dyspnea is improving. Has a productive cough. States his symptoms started 2 days ago. No chest pain. No palpitations. Positive flatus. No bowel movement yet. States he would like to continue to move around and walk. Objective: Vitals: (see below) General: No acute distress, laying comfortably in bed. HEENT: Moist mucous membranes. Neck: No JVD or lymphadenopathy Cardiac: RRR, No murmurs Pulm: Mild respiratory wheezing and rhonchi bilaterally. Diminished breath sounds at the right lower lobe. No use of accessory muscles. Abd: Mild tenderness at the incision sites. Bandage clean and dry. No drainage. No bleeding. Nondistended. Positive bowel sounds.razia or cyanosis Labs (see below) Images: CTA chest on 07/09/18 Impression: 1. No obvious pulmonary embolus. Moderate right lower lobe atelectasis along with trace left basilar atelectasis and small right pleural effusion. 2. Subcutaneous emphysema along the anterolateral lower chest and upper abdomen. 3. Small amount of subcutaneous emphysema in the visualized upper abdomen raising the possibility of perforation versus postoperative change. 4. Partially calcified pleural plaques versus small amount of extravasated contrast material along the undersurface of the diaphragm. No recent chest or abdominopelvic CT available for comparison or correlation. Assessment/Plan 1. Acute COPD exacerbation likely secondary to bacterial pneumonia. Started on Zosyn.. No lactic acidosis. CRP 8. Continue prednisone followed by taper. Nebulizers. Blood/sputum cultures pending. Incentive spirometer ordered. 2. Prostate cancer status post Robotic-assisted laparoscopic radical prostatect toby with bilateral pelvic lymph node dissection, Lysis of adhesions. Management per Dr. Duff. 3. Hypertension controlled continue current meds. DVT prophy: Heparin subcutaneous VS,Fishbone, I+O VS, Fishbone, I+O Laboratory Tests 07/10/18 05:55 Red Blood Count 3.64 L, Mean Corpuscular Volume 87.4, Mean Corpuscular Hemoglobin 30.2, Mean Corpuscular Hemoglobin Concent 34.6, Red Cell Distribution Width 12.2, Calcium Level 8.1 L Vital Signs Date Time Temp Pulse Resp B/P (MAP) Pulse Ox O2 Delivery O2 Flow Rate FiO2 07/10/18 10:00 2.0 07/10/18 06:00 98.6 86 18 129/62 (84) 96 Nasal Cannula 07/08/18 02:00 98 I&O- Last 24 Hours up to 6 AM 07/10/18 06:00 Intake Total 1070 ml Output Total 1225 ml Balance -155 ml GINGER STUART MD Jul 10, 2018 13:39
[2018-07-10 14:00] VITALS: BP 122/58
[2018-07-10] MEDS: busPIRone 5 MG TAB PO SCH (19:58)
[2018-07-10 22:00] VITALS: BP 120/54
[2018-07-11] MEDS: KETOROLAC 30 MG/ML VIAL (J1885) IV SCH ×4 (01:29→14:19)
[2018-07-11 02:00] VITALS: BP 121/72
[2018-07-11] MEDS: OMEPRAZOLE 20 MG CAP PO SCH (05:29)
[2018-07-11] MEDS: PIPERACILLIN/TAZOBACTAM SOD 3.375 GM in D5W MINI-BAG PLUS 50 ML IV SCH ×2 (05:29→10:46)
[2018-07-11] MEDS: HEPARIN SOD (PORCINE) 5000 UNITS/ML VIAL SC SCH ×2 (05:30→14:02)
[2018-07-11 06:00] VITALS: BP 148/67
[2018-07-11 06:12] LABS: HEMATOCRIT 29.2 % (42.0-52.0); MEAN CORPUSCULAR HEMOGLOBIN 30.6 pg (27.0-33.0); MEAN CORPUSCULAR HGB CONC 34.2 g/dl (32.0-36.5); MEAN CORPUSCULAR VOLUME 89.3 fl (80.0-96.0); PLATELET COUNT, AUTOMATED 197 10^3/uL (150-450); RED BLOOD COUNT 3.27 10^6/uL (4.30-6.10); WHITE BLOOD COUNT 10.7 10^3/uL (4.0-10.0)
[2018-07-11 06:38] LABS: BLOOD UREA NITROGEN 17 MG/DL (7-18); CALCIUM LEVEL 8.2 MG/DL (8.8-10.2); CARBON DIOXIDE LEVEL 27 MEQ/L (21-32); CHLORIDE LEVEL 110 MEQ/L (98-107); CREATININE FOR GFR 0.74 MG/DL (0.70-1.30); GLOMERULAR FILTRATION RATE > 60.0 (>42); GLUCOSE, FASTING 93 MG/DL (70-100); POTASSIUM SERUM 3.4 MEQ/L (3.5-5.1); SODIUM LEVEL 143 MEQ/L (136-145)
[2018-07-11] MEDS: IPRATROPIUM 0.5MG/ALBUTEROL 2.5MG INH SOL UD 3ML (DUONEB)(J7620) NEB SCH ×2 (07:28→11:15)
--- NOTE | 2018-07-11 08:35 | IPNPDOC ---
Assessment/Plan Date Seen The patient was seen on 07/11/18. Patient Summary This is a 68 y/o M POD4 s/p RALP w/ BPLND, now also diagnosed w/ pneumonia and COPD exacerbation. The hospitalist service is following and have him on zosyn and prednisone. Sputum culture and blood cultures are pending. Patient notes that he is feeling better, having less SOB w/ ambulation and doing well off of supplemental O2. Plan/VTE VTE Prophylaxis Ordered?: Yes VTE Exclusion Mechanical Proph: N/A:VTE Prophy Ordered VTE Exclusion Pharmacological: N/A:VTE Prophy Ordered Plan/Urinary Catheter Urinary Catheter: Other Catheter: (catheter to stay in for 7-10 days for healing of the vesicourethral anastomosis) Plan - hospitalist service following for pneumonia and COPD exacerbation - cont zosyn and prednisone - norco prn pain; scheduled toradol - cont home meds - strict I/Os - SCDs when in bed - SQH - incentive spirometry - regular diet - discharge pending ok from hospitalist service Subjective Review oF Systems Chief Complaint The patient is a 68-year-old male admitted with a reason for visit of Prostate Cancer. Events since Last Encounter No acute events o/n. Good pain control. SOB improved. Ambulating better. Tolerating regular diet. No flatus yet. No n/v. No f/c/ns. Objective Physical Examination General Exam: Alert, Cooperative, No Acute Distress ABDOMEN EXAM: Other (soft, nontender; incisions clean/dry/intact) Skin Exam: Nl turgor and temperature Neuro Exam: Normal Speech Psych Exam: Mental status NL, Mood NL Other physical findings catheter draining clear urine Vital Signs/I&O Vital Signs Date Time Temp Pulse Resp B/P (MAP) Pulse Ox O2 Delivery O2 Flow Rate FiO2 07/11/18 06:00 98.6 64 18 148/67 (94) 93 Room Air 07/10/18 21:00 0.0 07/08/18 02:00 98 I&O- Last 24 Hours up to 6 AM 07/11/18 06:00 Intake Total 980 ml Output Total 1075 ml Balance -95 ml Laboratory Data Labs 24H Laboratory Tests 2 07/10/18 10:30: Lactic Acid Level 1.5, C-Reactive Protein, Quantitative 8.30H 07/11/18 05:53: Nucleated Red Blood Cells % (auto) 0.0, Anion Gap 6L, Glomerular Filtration Rate > 60.0, Blood Urea Nitrogen 17, Creatinine 0.74, Sodium Level 143, Potassium Level 3.4L, Chloride Level 110H, Carbon Dioxide Level 27, Calcium Level 8.2L CBC/BMP Laboratory Tests 07/11/18 05:53 Red Blood Count 3.27 L, Mean Corpuscular Volume 89.3, Mean Corpuscular Hemoglobin 30.6, Mean Corpuscular Hemoglobin Concent 34.2, Red Cell Distribution Width 12.5, Calcium Level 8.2 L Microbiology Microbiology 07/10/18 Blood Culture, Received Pending 07/10/18 Blood Culture, Received Pending 07/09/18 MRSA Screen - Final, Complete 07/09/18 Gram Stain - Final, Resulted 07/09/18 Sputum Culture, Resulted Pending DILMA ADORNO MD Jul 11, 2018 08:35
[2018-07-11] MEDS ORDERED: POTASSIUM CHLORIDE 10 MEQ SR TABLET PO ONE (08:45)
[2018-07-11 09:30] VITALS: BP 136/61
[2018-07-11 10:02] LABS: C REACTIVE PROTEIN QUANTITATIV 4.63 MG/DL (0.00-0.30)
[2018-07-11] MEDS: DOCUSATE SODIUM 100 MG CAP PO SCH (10:44)
[2018-07-11] MEDS: hydroCHLOROthiazide 12.5 MG CAPSULE PO SCH (10:44)
[2018-07-11] MEDS: ATORVASTATIN 20 MG TAB PO SCH (10:45)
[2018-07-11] MEDS: predniSONE 10 MG TAB PO SCH (10:45)
[2018-07-11] MEDS ORDERED: LEVA750T7 PO (12:13)
[2018-07-11] MEDS ORDERED: VENTAER INH (12:13)
[2018-07-11] MEDS ORDERED: PRED10TA2 PO (12:19)
--- NOTE | 2018-07-11 13:40 | IPNPDOC ---
Text Note Date of Service The patient was seen on 07/11/18. NOTE Subjective: Feels well. No ECHEVARRIA. No hypoxia. No CP. No Palpitations. Excited to go home today. Objective: Vitals: (see below) General: No acute distress, laying comfortably in bed. HEENT: Moist mucous membranes. Neck: No JVD or lymphadenopathy Cardiac: RRR, No murmurs Pulm: No wheezing. Minimal rhonchi bilaterally. No use of accessory muscles. Abd: Mild tenderness at the incision sites. Bandage clean and dry. No drainage. No bleeding. Nondistended. Positive bowel sounds. Ext: No edema or cyanosis Labs (see below) Images: CTA chest on 07/09/18 Impression: 1. No obvious pulmonary embolus. Moderate right lower lobe atelectasis along with trace left basilar atelectasis and small right pleural effusion. 2. Subcutaneous emphysema along the anterolateral lower chest and upper abdomen. 3. Small amount of subcutaneous emphysema in the visualized upper abdomen raising the possibility of perforation versus postoperative change. 4. Partially calcified pleural plaques versus small amount of extravasated contrast material along the undersurface of the diaphragm. No recent chest or abdominopelvic CT available for comparison or correlation. Assessment/Plan 1. Acute COPD exacerbation likely secondary to strep pneumonia. Started on Zosyn.. No lactic acidosis. CRP 8. Continue prednisone followed by taper. Nebulizers. Blood cx negative. Sputum cultures with strep pneumonia, final pending. Amb pulse ox 96% on RA, no dyspnea. Abx changed to levaquin. Prednisone taper. 2. Prostate cancer status post Robotic-assisted laparoscopic radical prostatectomy with bilateral pelvic lymph node dissection, Lysis of adhesions. Management per Dr. Duff. 3. Hypertension controlled continue current meds. DVT prophy: Heparin subcutaneous Pt is to f/u with PCP in 1 week. Instructed to not take cipro that was previously prescribed. Levaquin x 7 days sent to his pharmacy, along with prednisone taper, ventolin inhaler. Pt is to return to ED if symptoms worsen. VS,Fishbone, I+O VS, Fishbone, I+O Laboratory Tests 07/11/18 05:53 Red Blood Count 3.27 L, Mean Corpuscular Volume 89.3, Mean Corpuscular Hemoglobin 30.6, Mean Corpuscular Hemoglobin Concent 34.2, Red Cell Distribution Width 12.5, Calcium Level 8.2 L Vital Signs Date Time Temp Pulse Resp B/P (MAP) Pulse Ox O2 Delivery O2 Flow Rate FiO2 07/11/18 12:16 96 Room Air 07/11/18 09:30 98.2 84 16 136/61 (86) 07/10/18 21:00 0.0 07/08/18 02:00 98 I&O- Last 24 Hours up to 6 AM 07/11/18 06:00 Intake Total 980 ml Output Total 1075 ml Balance -95 ml GINGER STUART MD Jul 11, 2018 13:39
[2018-07-11 14:30] VITALS: BP 136/72
--- NOTE | 2018-07-11 16:44 | DSES ---
DATE OF ADMISSION: 07/07/2018 DATE OF DISCHARGE: 07/11/2018 ADMISSION DIAGNOSIS: Prostate cancer. DISCHARGE DIAGNOSES: Prostate cancer. Pneumonia. Chronic obstructive pulmonary disease exacerbation. ADMITTING PHYSICIAN: Jonh Duff MD DISCHARGE PHYSICIAN: Jonh Duff MD PROCEDURES PERFORMED: Robotic assisted laparoscopic radical prostatectomy and bilateral pelvic lymph node dissection on 07/07/2018. HISTORY OF PRESENT ILLNESS: This is a 68-year-old male who was admitted to the hospital after undergoing the above mentioned procedure on 07/07/2018. HOSPITALIZATION COURSE: The patient's postoperative course initially was complicated only by difficult to control pain. For this reason Toradol was added to [place] and this helped control his pain better. By postoperative day two he had very good pain control and all of his labs were within normal limits. His Cesar-Rudd drain had minimal output and his catheter had excellent output. We therefore removed his Cesar-Rudd drain. Also on postoperative day two the patient was noted to have an oxygen desaturation to the mid 80s when he was taken off the nasal cannula. He also started having a productive cough. We sent off his sputum for a culture on that day and due to the desaturation a chest x-ray was obtained and was notable for a possible pneumonia. The hospitalist service was therefore consulted. A CT chest was obtained to rule out pulmonary embolism and it was negative. On postoperative day two the hospitalist started him on Zosyn as well as Prednisone for pneumonia as well as chronic obstructive pulmonary disease exacerbation. In the next few days the patient was noted to have improvement of his O2 saturation off of oxygen. He did not have anymore desaturations. By postoperative day four he was oxygenating well on room air and his cough was improving. Sputum culture returned positive for Streptococcus and blood cultures were negative. He is therefore deemed ready for discharge. He was discharged home with a catheter in place on postoperative day four. He was given a prescription for Levaquin and Prednisone for treatment of pneumonia as well as chronic obstructive pulmonary disease exacerbation. The plan is for him to follow up in clinic in approximately 1 week for catheter removal. It is also recommended he schedule follow up with his primary care physician given the fact that he was diagnosed with pneumonia and chronic obstructive pulmonary disease exacerbation.
--- NOTE | 2018-07-11 18:27 | ECHO ---
DATE OF PROCEDURE: 07/11/2018 REFERRING PHYSICIAN: Dr. Nelson INDICATION: Dyspnea. Height 175 cm Weight 64 kg. DIMENSIONS: IVS: 1.2 LV 4.6 LVPW: 1.1 LA 3.6 Aorta 3.5 IVC 1.2 Mitral E wave velocity 69, A-wave 67 E prime septal 9.2, E prime lateral 14.6 FINDINGS: The study is of very limited technical quality with difficult acoustic windows. The patient is in sinus rhythm. Left ventricle is of normal size and grossly normal systolic function with estimated EF around 65%. This is based on fair visualization at best. Right ventricle also appears normal size and systolic function. Both atria appear normal. Aortic valve is sclerotic. There is minimal restriction of leaflet mobility. Mitral valve also exhibits mild degenerative abnormalities but leaflet mobility is preserved. Tricuspid valve appears normal. Pulmonic valve was not seen. No pericardial effusion is present. Inferior vena cava is normal size. Aortic root is normal. Aortic arch was not seen. Limited segment of abdominal aorta appears normal. Doppler interrogation reveals no aortic insufficiency and minimal stenosis with mean gradient 10 mmHg. Mitral and tricuspid valves are functionally competent. Mitral inflow pattern and tissue Doppler imaging of mitral annulus reveal normal diastolic function of left ventricle. CONCLUSIONS: 1. Study is of limited technical quality. 2. Normal LV size with mild LVH and grossly preserved LV systolic and diastolic function. 3. Aortic sclerosis resulting in mild stenosis and no insufficiency. 4. Functionally competent mitral and tricuspid valves. COMMENT: SBE prophylaxis is not recommended. Study does not provide obvious explanation for dyspnea. MTDD
== END 2018-07-11 14:55 | disposition home or self-care (01) | DRG 707 ==
LOC: M OR 06:48 → M MSPAV 16:56
PROVIDERS: ADMIT Urology; ATTEND Urology
PROC: 07BC4ZX Excision of Pelvis Lymphatic, Percutaneous Endoscopic Approach, Diagnostic (ICD-10-PCS; 2018-07-07)
PROC: 8E0W4CZ Robotic Assisted Procedure of Trunk Region, Percutaneous Endoscopic Approach (ICD-10-PCS; 2018-07-07)
PROC: 0VT04ZZ Resection of Prostate, Percutaneous Endoscopic Approach (ICD-10-PCS; principal; 2018-07-07 08:30)
DX: C61 Malignant neoplasm of prostate (principal); J13 Pneumonia due to Streptococcus pneumoniae; J96.00 Acute respiratory failure, unspecified whether with hypoxia or hypercapnia; J44.1 Chronic obstructive pulmonary disease with (acute) exacerbation; F17.200 Nicotine dependence, unspecified, uncomplicated

== ENCOUNTER → 2018-11-18 | Outpatient (CLI) | payer OTHER, MEDICARE ==
[~2018-11-18] MED LIST changes: +ACET1TAB55 PO; -ASPI1TAB PO; +ASPI81TA26 PO; +CIPR-249 PO; +COLA100C5 PO; +HYDR-3715 PO; +LEVA750T7 PO; +PRED10TA2 PO; +VENTAER INH
== END ==
LOC: M SMT 10:37
PROVIDERS: ATTEND Urology
DX: C61 Malignant neoplasm of prostate (principal)
CPT/HCPCS: 36415; 84153; G0463

== ENCOUNTER → 2019-03-14 | Outpatient (CLI) | payer OTHER ==
[~2019-03-14] MED LIST changes: -OMEP20CA3 PO; +OMEP20CA4 PO
== END ==
LOC: M SMT 08:47
PROVIDERS: ATTEND Urology
DX: C61 Malignant neoplasm of prostate (principal)
CPT/HCPCS: 36415; 84153; G0463

== ENCOUNTER 2020-05-06 20:57 | Emergency (ER) | payer OTHER, MEDICARE ==
[~2020-05-06] VITALS: Ht 175.3 cm; Wt 82.0 kg
[~2020-05-06 20:57] MED LIST changes: -HYDR-2808 PO; +HYDR-4429 PO; +OMEP1CAP73 PO; -OMEP20CA4 PO
[2020-05-06 22:09] LABS: BASO % 0.1 % (0.0-1.0); HEMATOCRIT 41.7 % (42.0-52.0); HEMOGLOBIN 13.7 g/dl (13.5-17.5); LYMPH # 0.7 10^3/uL (1.5-5.0); LYMPH % 4.2 % (24.0-44.0); MEAN CORPUSCULAR HEMOGLOBIN 29.5 pg (27.0-33.0); MEAN CORPUSCULAR HGB CONC 32.9 g/dl (32.0-36.5); MEAN CORPUSCULAR VOLUME 89.9 fl (80.0-96.0); MONO # 0.6 10^3/uL (0.0-0.8); MONO % 3.8 % (0.0-5.0); NEUTROPHILS # 14.7 10^3/uL (1.5-8.5); NEUTROPHILS % 91.7 % (36.0-66.0); PLATELET COUNT, AUTOMATED 210 10^3/uL (150-450); RED BLOOD COUNT 4.64 10^6/uL (4.30-6.10)
[2020-05-06] MEDS ORDERED: MORPHINE 4 MG/ML 1ML VIAL/SYRINGE (J2270) IV ONE ×2 (22:15→23:00)
[2020-05-06 22:40] LABS: ALBUMIN 3.7 GM/DL (3.2-5.2); ALT/SGPT 22 U/L (12-78); BILIRUBIN,DIRECT 0.3 MG/DL (0.0-0.2); BILIRUBIN,TOTAL 1.2 MG/DL (0.2-1.0); BLOOD UREA NITROGEN 13 MG/DL (7-18); CALCIUM LEVEL 9.2 MG/DL (8.8-10.2); CARBON DIOXIDE LEVEL 26 MEQ/L (21-32); CHLORIDE LEVEL 101 MEQ/L (98-107); CREATININE FOR GFR 1.01 MG/DL (0.70-1.30); GLOMERULAR FILTRATION RATE > 60.0 (>42); GLUCOSE, FASTING 147 MG/DL (70-100); LIPASE 63 U/L (73-393); POTASSIUM SERUM 4.2 MEQ/L (3.5-5.1); SODIUM LEVEL 133 MEQ/L (136-145); TOTAL PROTEIN 6.6 GM/DL (6.4-8.2)
[2020-05-06] MEDS ORDERED: ISOVUE-370 76% 100ML VIAL As Ordered ONE (23:10)
--- NOTE | 2020-05-06 23:46 | REPVR ---
PROCEDURE INFORMATION: Exam: CT Abdomen And Pelvis With Contrast Exam date and time: 05/06/2020 11:20 PM Age: 69 years old Clinical indication: Abdominal pain; Localized; Lower; Additional info: Artificiaul urinary sphincter today now severe low abd pain TECHNIQUE: Imaging protocol: Computed tomography of the abdomen and pelvis with intravenous contrast. Radiation optimization: All CT scans at this facility use at least one of these dose optimization techniques: automated exposure control; mA and/or kV adjustment per patient size (includes targeted exams where dose is matched to clinical indication); or iterative reconstruction. Contrast material: ISOVUE 370; Contrast volume: 100 ml; Contrast route: INTRAVENOUS (IV); COMPARISON: US PROSTATE TRANSRECTAL 05/10/2018 8:41 AM FINDINGS: Lungs: Minimal bibasilar fibro-atelectatic change. Prominent calcifications of the diaphragms bilaterally. Liver: The liver attenuation is 77 Hounsfield units and the spleen is 115 Hounsfield units. Gallbladder and bile ducts: Normal. No calcified stones. No ductal dilation. Pancreas: Normal. No ductal dilation. Spleen: Normal. No splenomegaly. Adrenal glands: Normal. No mass. Kidneys and ureters: Mild bilateral hydronephrosis which is symmetric. Stomach and bowel: Sutures along the cecal tip suggesting prior appendectomy. Moderate stool throughout the proximal colon with collapse of the distal colon. Appendix: No evidence of appendicitis. Intraperitoneal space: Unremarkable. No free air. No significant fluid collection. Vasculature: There is mild calcification of the abdominal aorta with extension into the iliac arteries. Lymph nodes: Unremarkable. No enlarged lymph nodes. Urinary bladder: Slight distention of the urinary bladder and posterior urethra to the level of the constricting device. Reproductive: Absent prostate. Bones/joints: Unremarkable. No acute fracture. Soft tissues: Device around the anterior urethra within the penis with reservoir at the deep aspect of the right rectus abdominus in the upper pelvis. There is subcutaneous gas and induration in the anterior abdominal wall of the pelvis suggesting recent placement. IMPRESSION: 1. Status post recent placement of a constricting device about the penile anterior urethra. 2. Mild distention of the urinary bladder and posterior urethra to the level of the constricting device. There is mild bilateral hydronephrosis which may be related to bladder distention. 3. Status post appendectomy and probably prostatectomy. 4. Diaphragmatic calcifications bilaterally with minimal bibasilar fibro-atelectatic change suggesting asbestos exposure. 5. Mild fatty infiltration of the liver. 6. Otherwise negative CT abdomen/pelvis. Electronically signed by: Almas Coleman On 05/06/2020 23:46:38 PM
--- NOTE | 2020-05-07 00:48 | REPVR ---
PROCEDURE INFORMATION: Exam: US Pelvis Limited, Male Exam date and time: 05/07/2020 12:41 AM Age: 69 years old Clinical indication: Pelvic pain; Additional info: Eval for urinary retention TECHNIQUE: Imaging protocol: Real-time pelvic ultrasound with image documentation. COMPARISON: CT ABD/PEL W/IV CONTRAST ONLY 05/06/2020 11:15 PM FINDINGS: Bladder: Mildly irregular urinary bladder with bladder volume of 975 mL. IMPRESSION: 1. Urinary bladder volume of 975 mL. 2. Mildly irregular contour of the urinary bladder. Electronically signed by: Almas Coleman On 05/07/2020 00:48:08 AM
[2020-05-07 01:27] VITALS: BP 149/65
== END 2020-05-07 01:31 | disposition home or self-care (01) ==
LOC: M ED 20:57
DX: R33.9 Retention of urine, unspecified (principal); I10 Essential (primary) hypertension; K21.9 Gastro-esophageal reflux disease without esophagitis; M54.9 Dorsalgia, unspecified; G43.909 Migraine, unspecified, not intractable, without status migrainosus; F43.10 Post-traumatic stress disorder, unspecified; J45.909 Unspecified asthma, uncomplicated; M54.30 Sciatica, unspecified side; M19.90 Unspecified osteoarthritis, unspecified site; Z85.51 Personal history of malignant neoplasm of bladder; Z85.46 Personal history of malignant neoplasm of prostate; F17.200 Nicotine dependence, unspecified, uncomplicated; Z79.82 Long term (current) use of aspirin; Z79.899 Other long term (current) drug therapy
CPT/HCPCS: 51702; 74177; 76857; 80048; 80076; 81001; 83690; 85025; 93041; 99285; J2270; Q9967

== ENCOUNTER → 2020-09-17 | Outpatient (CLI) | payer OTHER, MEDICARE ==
--- NOTE | 2020-09-18 23:29 | ECWPNPC ---
PATIENT NAME: DELVIN VILLALOBOS : 1950 GENDER: MALE VISIT DATE: 09/17/2020 DISCHARGE DATE: 09/17/20911 VISIT LOCKED DATE TIME: PHYSICIAN: SINGH TALBOT RESOURCE: SINGH TALBOT REASON FOR APPOINTMENT 1. BACK PAIN HISTORY OF PRESENT ILLNESS DEPRESSION SCREENING: PHQ-2 (2015 EDITION) LITTLE INTEREST OR PLEASURE IN DOING THINGS?DECLINED TO SPECIFY FEELING DOWN, DEPRESSED, OR HOPELESS?SEVERAL DAYS TOTAL SCORE1 70-YEAR-OLD MALE IN FOR INITIAL PAIN CONSULT REGARDING LOW BACK PAIN WITH RADICULOPATHY. PATIENT ADMITS THE BACK PAIN HAS BEEN PRESENT FOR SEVERAL YEARS HOWEVER HIS RADICULAR SYMPTOMS HAVE BEEN WORSENING. HE DENIES A TRIAL OF INJECTIONS IN THE PAST. HE IS CURRENTLY TAKING HYDROCODONE. HE RATES HIS PAIN CURRENTLY AT A 4 OUT OF 10 AND DESCRIBES IT ACHING, BURNING, CONTINUOUS, TENDER, AND SHOOTING. GENERAL: -. FALL RISK SCREENING: SCREENING :FEW FALLS REPORTED IN THE LAST YEAR WITHOUT INJURY. PAIN SCREENING: PATIENT HAS A COMPLAINT OF ACUTE OR CHRONIC PAIN :YES LOCATION OF PAIN:LOW BACK INTENSITY OF PAIN (SCALE OF 1 TO 10):4 WHAT DOES YOUR PAIN FEEL LIKE:ACHING, BURNING, CONTINOUS, TENDER, SHOOTING DURATION:CONTINOUS, AWAKENS FROM SLEEP PAIN IS INCREASED BY:ACTIVITIES, PROLONGED STANDING, OTHERS WALKING PAIN IS DECREASED BY:OTHERS ELEVATION NURSING NOTE: -. PAIN CENTER INTAKE QUESTIONS: DO YOU HAVE A HISTORY OF MRSA? :NO DO YOU TAKE A BLOOD THINNERS? :NO DO YOU HAVE ANY BLEEDING DISORDERS? :NO ANY NEW NUMBNESS OR WEAKNESS IN YOUR LEGS OR ARMS? :YES RIGHT HAND NUMBNESS ANY PACEMAKER,DEFIBRILLATOR, OR DORSAL COLUMN STIMULATOR? :NO DO YOU HAVE ANY RASHES OR OPEN SORES? :NO ARE YOU ALLERGIC TO IV DYE? :NO ARE YOU DIABETIC? :YES PREDIABETIC ANY NEW PROBLEMS WITH YOUR MEDICATIONS? :NO HAVE YOU RECEIVED A VACCINE IN THE PAST 30 DAYS? :YES IF SO WHAT VACCINE AND WHEN? RECEIVED LAST COVID VACCINATION 08/2020. PATIENT IS UNABLE TO RECALL THE EXACT DATE. DO YOU PLAN TO RECEIVE A VACCINE IN THE NEXT 21 DAYS? :NO DO YOU NEED ANY PRESCRIPTION? :NO DO YOU TAKE ANY IMMUNOSUPPRESSIVE MEDICATIONS? :NO DO YOU HAVE ANY KIDNEY OR LIVER DISEASE? :NO IS THERE A CHANCE YOU COULD BE ? :NO ARE YOU BREAST FEEDING? :NO CURRENT MEDICATIONS TAKING ACETAMINOPHEN 325 MG CAPSULE 1 CAPSULE NEEDED ORALLY EVERY 6 HRS TAKING CARBOXYMETHYLCELLUL-GLYCERIN 0.5-0.9 % SOLUTION DIRECTED OPHTHALMIC TAKING HYDROCODONE-ACETAMINOPHEN 7.5-325 MG TABLET 1 TABLET NEEDED ORALLY THREE TIMES DAILY NEEDED TAKING OMEPRAZOLE MAGNESIUM 20 MG TABLET DELAYED RELEASE 1 TABLET 30 MINUTES BEFORE MORNING MEAL ORALLY ONCE A DAY TAKING RAMIPRIL 2.5 MG CAPSULE 1 CAPSULE ORALLY ONCE A DAY TAKING MULTI COMPLETE - CAPSULE ORALLY TAKING ALBUTEROL , NOTES: 100/IPRATRO 20 MCG TAKING ENSURE COMPLETE SHAKE - LIQUID ORALLY NOT-TAKING IBUPROFEN 400 MG TABLET 1 TABLET WITH FOOD OR MILK NEEDED ORALLY THREE TIMES A DAY UNKNOWN ATORVASTATIN CALCIUM 80 MG TABLET 1 TABLET ORALLY ONCE A DAY UNKNOWN HYDROCHLOROTHIAZIDE 12.5 MG CAPSULE 1 CAPSULE IN THE MORNING ORALLY ONCE A DAY UNKNOWN OMEPRAZOLE 20 MG CAPSULE DELAYED RELEASE 1 CAPSULE ORALLY ONCE A DAY UNKNOWN DICLO GEL 1 % KIT TRANSDERMAL UNKNOWN BUSPIRONE HCL 10 MG TABLET 1 TABLET ORALLY TWICE DAILY AT BEDTIME NEEDED UNKNOWN DEXTRAN 70-HYPROMELLOSE 0.1-0.3 % SOLUTION OPHTHALMIC UNKNOWN NORCO 5-325 MG TABLET 1-2 TABLET(S) ORALLY EVERY 6 HRS NEEDED FOR PAIN (MDD 8) UNKNOWN CIPROFLOXACIN HCL 500 MG TABLET 1 TABLET ORALLY DAILY UNKNOWN COLACE 100 MG CAPSULE 1 CAPSULE ORALLY BID UNKNOWN KETOROLAC TROMETHAMINE 10 MG TABLET 1 TABLET WITH FOOD OR MILK ORALLY EVERY 6 HRS NEEDED FOR PAIN UNKNOWN HYDROCODONE-ACETAMINOPHEN 5-325 MG TABLET 1 TABLET NEEDED ORALLY EVERY 6 HRS UNKNOWN DOCUSATE SODIUM 100 MG CAPSULE 1 CAPSULE NEEDED ORALLY ONCE A DAY UNKNOWN BACTRIM DS 800-160 MG TABLET 1 TABLET ORALLY TWICE A DAY MEDICATION LIST REVIEWED AND RECONCILED WITH THE PATIENT PAST MEDICAL HISTORY MICROHEMOTURIA ELEVATED PSA PROSTATE CANCER GERD CHRONIC BACK PAIN CARCINOMA OF BLADDER BASAL CELL CARCINOMA HYPERTENSION ALLERGIC RHINITIS INSOMNIA ARTHRALGIA-HIP CERVICALGIA ASTHMA BILATERAL KNEE PAIN CHRONIC OSTEOARTHRITIS PTSD ALLERGIES CHANTIX: NERVOUSNESS, JITTERY - SIDE EFFECTS GABAPENTIN: ALLERGY SILDENAFIL CITRATE: ALLERGY SURGICAL HISTORY TOOK FLUID OFF KNEE CANCER REMOVED FROM BACK TRUS BIOPSY (PROSTATE) AND CYSTO 04/2018 TURBT 05/31/2018 PROSTATECTOMY 07/07/2018 RIGHT SHOULDER 05/2019 SOCIAL HISTORY GENERAL: TOBACCO USE ARE YOU A:CURRENT SMOKER ABOUT 2 PACKS A DAY LATEX QUESTIONNAIRE LATEX ALLERGY : HAVE YOU EVER DEVELOPED ANY TYPE OF REACTION AFTER HANDLING LATEX PRODUCTS SUCH RUBBER GLOVES, CONDOMS, DIAPHRAGMS, BALLOONS, SOCKS, OR UNDERWEAR?NO LATEX ALLERGY : HAVE YOU EVER DEVELOPED ANY TYPE OF REACTION DURING OR AFTER DENTAL APPOINTMENT, VAGINAL/RECTAL EXAMINATION, SURGICAL PROCEDURE, OR ANY OTHER EXPOSURE?NO LATEX RISK : HAVE YOU EVER HAD ANY DIFFICULTY BREATHING OR HIVES AFTER EATING OR HANDLING ANY FRUITS, OR VEGETABLES; SUCH KIWI, BANANAS, STONE FRUITS, OR CHESTNUTSNO LATEX RISK : DO YOU HAVE A PREVIOUS PERSONAL HISTORY OF MORE THAN NINE SURGERIES, SPINA BIFIDA, OR REPEATED CATHERIZATIONS? NO LATEX RISK : ARE YOU FREQUENTLY EXPOSED TO LATEX PRODUCTS IN YOUR OCCUPATION?NO DATE ASKED : 09/17/2020 ALCOHOL USE: NO. ALCOHOL SCREENING DID YOU HAVE A DRINK CONTAINING ALCOHOL IN THE PAST YEAR?NO POINTS0 INTERPRETATIONNEGATIVE RECREATIONAL DRUG USE DRUG USE?NO CAFFEINE CAFFEINE USE?YES 2 POTS OF COFFEE DAILY YAZIDISM YAZIDISM NO SHINTO BELIEFS THAT WOULD IMPACT HEALTH CARE. 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 EXERCISE: VERY ACTIVE. MARITAL STATUS: . HOSPITALIZATION/MAJOR DIAGNOSTIC PROCEDURE SPENT 6 WEEKS IN HOSPITAL FOR LUNG ISSUES YEARS AGO D/T JOB REVIEW OF SYSTEMS CONSTITUTIONAL: ANY RECENT FEVER NO . CHILLS NO . WEIGHT CHANGE OF UNKNOWN REASONS NO . MUSCULOSKELETAL: ANY UNUSUAL JOINT PAIN OR SWELLING NOT MENTIONED NO . SYSTEMIC LUPUS NO . ANY NEUROMUSCULAR DISORDER NOT MENTIONED NO . LYME DISEASE NO . GASTROENTEROLOGY: ANY NEW CHANGE IN BOWEL CONTROL? NO . HISTORY OF LIVER DISORDER NOT MENTIONED NO . HISTORY OF UNUSUAL ABDOMINAL PAIN OR CRAMPING NOT MENTIONED NO . NO CONSTIPATION. GENITOURINARY: ANY NEW CHANGE IN BLADDER CONTROL? NO . ANY RENAL/KIDNEY CONDITON NOT MENTIONED NO . NEUROLOGY: HISTORY OF TBI NOT MENTIONED NO . OTHER NEW NUMBNESS OR PAIN PATTERNS NOT MENTIONED NO . NEW ONSET DIZZINESS OR NEUROLOGICAL CHANGES NOT MENTIONED NO . HISTORY OF SEVERE HEADACHES NOT MENTIONED NO . HISTORY OF STROKE OR NEUROLOGICAL DISORDER NOT MENTIONED NO . CARDIOLOGY: HEART SURGERY NO . CONGESTIVE HEART FAILURE/FLUID OVERLOAD NOT MENTIONED NO . HISTORY OF CHEST PAIN,IRREGULAR HEART BEAT NOT MENTIONED NO . RESPIRATORY: SHORTNESS OF BREATH ON EXERTION, WHEEZES, UNUSUAL COUGH NOT MENTIONED NO . ENDOCRINOLOGY: ADRENAL GLAND OR THYROID DISORDERS NOT MENTIONED NO . UNUSUAL URINATION, DIZZINESS OR LETHARGY NOT MENTIONED NO . VITAL SIGNS WT 153.6 LBS, HT 69 IN, BMI 22.68 INDEX, BP 129/70 MM HG, HR 66 /MIN, RR 18 /MIN, TEMP 98.3 F, OXYGEN SAT % 97%, SAFE IN ENV? (Y/N) YES, NA INITIALS WY 08:35, REVIEWED BY: SHRAVAN CRUZ MA. EXAMINATION GENERAL EXAMINATION: GENERALNO ACUTE DISTRESS, WELL NOURISHED AND HYDRATED. PSYCHAPPROPRIATE MOOD AND AFFECT . LUNGS:CLEAR TO AUSCULTATION BILATERALLY, NO WHEEZES, RHONCHI, RALES. HEART:NO MURMURS, REGULAR RATE AND RHYTHM. BACK:EYES POINT TENDERNESS ALONG LUMBAR SPINE, POSITIVE MODIFIED SLR RIGHT SIDE. . MUSCULOSKELETAL:EQUAL STRENGTH OF THE LOWER EXTREMITIES BILATERALLY . ASSESSMENTS LOW BACK PAIN - M54.5 (PRIMARY) TREATMENT LOW BACK PAIN [facility] MRI SPINE, L.S. WITHOUT [id number] NOTES: 70-YEAR-OLD MALE IN FOR INITIAL PAIN CONSULT REGARDING LOW BACK PAIN WITH RADICULOPATHY. GIVEN PRESENTING SYMPTOMS RECOMMENDED MRI OF THE LUMBAR SPINE WITH FOLLOW-UP POST IMAGING. PATIENT HAS EXPRESSED UNDERSTANDING OF AND WAS IN AGREEMENT WITH TREATMENT PLAN. GIVEN TIME TO ASK QUESTIONS AND EXPRESS CONCERNS. . PROCEDURE CODES FA211 ESTABILISHED PATIENT [facility] CHARGE DISPOSITION & COMMUNICATION FOLLOW UP POST IMAGING (REASON: MRI LUMBAR SPINE WITHOUT CONTRAST ) ELECTRONICALLY SIGNED BY ARLETTE CLAYTON ON 09/18/2020 AT 10:27 AM EDT DISCLAIMER : THIS IS A VISIT SUMMARY EXTRACTED FROM THE [employer] CHART. IT IS NOT A COPY OF THE [employer] PROGRESS NOTE. MERISSAD
== END ==
LOC: M PAIN 08:30
PROVIDERS: ATTEND Family Medicine
DX: M54.5 Low back pain (principal); R73.03 Prediabetes; K21.9 Gastro-esophageal reflux disease without esophagitis; G47.00 Insomnia, unspecified; J45.909 Unspecified asthma, uncomplicated; F17.210 Nicotine dependence, cigarettes, uncomplicated; Z86.59 Personal history of other mental and behavioral disorders; Z88.8 Allergy status to other drugs, medicaments and biological substances; Z79.899 Other long term (current) drug therapy

== ENCOUNTER → 2020-09-25 | Outpatient (CLI) | payer OTHER ==
--- NOTE | 2020-09-25 09:15 | REP ---
INDICATION: LOW BACK PAIN. COMPARISON: None. TECHNIQUE: Sagittal T1, T2, STIR, axial T1 and T2 weighted images of the lumbar spine obtained. FINDINGS: There is [id number] multilevel degenerative disc disease with loss of disc height and disc desiccation seen diffusely throughout the lumbar spine, slightly more progressed at the L5-S1 level. Vertebral heights are overall preserved. No malalignments. On the sagittal T2 weighted images, no significant canal stenosis. Conus ends normally at L1 level. On the review of axial images, At L1-2 no significant canal or foraminal narrowing. At L2-3 and L3-4 disc bulges with mild canal narrowing and mild bilateral foraminal narrowing. At L4-5 disc bulge with mild canal stenosis and [id number] bilateral foraminal narrowing. At L5-S1 a disc bulge and loss of disc height with mild canal narrowing and moderate right and vhsd-hm-dumnehga left foraminal narrowing. IMPRESSION: 1. Ribk-di-snjpnqev multilevel degenerative disc disease. 2. No limiting canal stenosis or disc herniation. 3. Foraminal narrowing as above, notable at the L5-S1 level, moderate on the right and [id number] on the left. <Electronically signed by Orestes Cohen > 09/25/20 0911
== END ==
LOC: M RAD 09-23 10:40
PROVIDERS: ATTEND Family Medicine
DX: M51.26 Other intervertebral disc displacement, lumbar region (principal); M51.27 Other intervertebral disc displacement, lumbosacral region

== ENCOUNTER → 2020-10-11 | Outpatient (CLI) | payer OTHER, MEDICARE ==
--- NOTE | 2020-10-15 00:51 | ECWPNPC ---
PATIENT NAME: DELVIN VILLALOBOS : 1950 GENDER: MALE VISIT DATE: 10/11/2020 DISCHARGE DATE: 10/11/20 1015 VISIT LOCKED DATE TIME: PHYSICIAN: SINGH TALBOT RESOURCE: SINGH TALBOT REASON FOR APPOINTMENT 1. REVIEW MRI HISTORY OF PRESENT ILLNESS GENERAL: HPI 70-YEAR-OLD MALE IN FOR CHRONIC PAIN FOLLOW-UP. HE RATES HIS PAIN CURRENTLY AT A 4/10 AND DESCRIBES IT ACHING, AND INTERMITTENT. PATIENT HAD AN MRI PERFORMED RECENTLY WHICH WILL BE REVIEWED WITH PATIENT TODAY.. - -. FALL RISK SCREENING: SCREENING NO FALLS REPORTED IN THE LAST YEAR. PAIN SCREENING: PATIENT HAS A COMPLAINT OF ACUTE OR CHRONIC PAIN :YES LOCATION OF PAIN:LOW BACK INTENSITY OF PAIN (SCALE OF 1 TO 10):4 WHAT DOES YOUR PAIN FEEL LIKE:ACHING, INTERMITTENT DURATION:INTERMITTENT, AWAKENS FROM SLEEP PAIN IS INCREASED BY:ACTIVITIES, PROLONGED STANDING, OTHERS INACTIVITY, PROLONGED LAYING DOWN PAIN IS DECREASED BY:USE OF PAIN MEDICATIONS, OTHERS ELEVATING LEGS NURSING NOTE: - -. PAIN CENTER INTAKE QUESTIONS: DO YOU HAVE A HISTORY OF MRSA? :NO DO YOU TAKE A BLOOD THINNERS? :NO DO YOU HAVE ANY BLEEDING DISORDERS? :NO ANY NEW NUMBNESS OR WEAKNESS IN YOUR LEGS OR ARMS? :YES RIGHT HAND NUMBNESS ANY PACEMAKER,DEFIBRILLATOR, OR DORSAL COLUMN STIMULATOR? :NO DO YOU HAVE ANY RASHES OR OPEN SORES? :NO ARE YOU ALLERGIC TO IV DYE? :NO ARE YOU DIABETIC? :YES PREDIABETIC ANY NEW PROBLEMS WITH YOUR MEDICATIONS? :NO HAVE YOU RECEIVED A VACCINE IN THE PAST 30 DAYS? :YES IF SO WHAT VACCINE AND WHEN? RECEIVED LAST COVID VACCINATION 08/2020. PATIENT IS UNABLE TO RECALL THE EXACT DATE. DO YOU PLAN TO RECEIVE A VACCINE IN THE NEXT 21 DAYS? :NO DO YOU NEED ANY PRESCRIPTION? :NO DO YOU TAKE ANY IMMUNOSUPPRESSIVE MEDICATIONS? :NO DO YOU HAVE ANY KIDNEY OR LIVER DISEASE? :NO IS THERE A CHANCE YOU COULD BE ? :NO ARE YOU BREAST FEEDING? :NO CURRENT MEDICATIONS TAKING ACETAMINOPHEN 325 MG CAPSULE 1 CAPSULE NEEDED ORALLY EVERY 6 HRS TAKING CARBOXYMETHYLCELLUL-GLYCERIN 0.5-0.9 % SOLUTION DIRECTED OPHTHALMIC TAKING HYDROCODONE-ACETAMINOPHEN 7.5-325 MG TABLET 1 TABLET NEEDED ORALLY THREE TIMES DAILY NEEDED TAKING OMEPRAZOLE MAGNESIUM 20 MG TABLET DELAYED RELEASE 1 TABLET 30 MINUTES BEFORE MORNING MEAL ORALLY ONCE A DAY TAKING RAMIPRIL 2.5 MG CAPSULE 1 CAPSULE ORALLY ONCE A DAY TAKING MULTI COMPLETE - CAPSULE ORALLY TAKING ALBUTEROL , NOTES: 100/IPRATRO 20 MCG TAKING ENSURE COMPLETE SHAKE - LIQUID ORALLY NOT-TAKING IBUPROFEN 400 MG TABLET 1 TABLET WITH FOOD OR MILK NEEDED ORALLY THREE TIMES A DAY UNKNOWN ATORVASTATIN CALCIUM 80 MG TABLET 1 TABLET ORALLY ONCE A DAY UNKNOWN HYDROCHLOROTHIAZIDE 12.5 MG CAPSULE 1 CAPSULE IN THE MORNING ORALLY ONCE A DAY UNKNOWN OMEPRAZOLE 20 MG CAPSULE DELAYED RELEASE 1 CAPSULE ORALLY ONCE A DAY UNKNOWN DICLO GEL 1 % KIT TRANSDERMAL UNKNOWN BUSPIRONE HCL 10 MG TABLET 1 TABLET ORALLY TWICE DAILY AT BEDTIME NEEDED UNKNOWN DEXTRAN 70-HYPROMELLOSE 0.1-0.3 % SOLUTION OPHTHALMIC UNKNOWN NORCO 5-325 MG TABLET 1-2 TABLET(S) ORALLY EVERY 6 HRS NEEDED FOR PAIN (MDD 8) UNKNOWN CIPROFLOXACIN HCL 500 MG TABLET 1 TABLET ORALLY DAILY UNKNOWN COLACE 100 MG CAPSULE 1 CAPSULE ORALLY BID UNKNOWN KETOROLAC TROMETHAMINE 10 MG TABLET 1 TABLET WITH FOOD OR MILK ORALLY EVERY 6 HRS NEEDED FOR PAIN UNKNOWN HYDROCODONE-ACETAMINOPHEN 5-325 MG TABLET 1 TABLET NEEDED ORALLY EVERY 6 HRS UNKNOWN DOCUSATE SODIUM 100 MG CAPSULE 1 CAPSULE NEEDED ORALLY ONCE A DAY UNKNOWN BACTRIM DS 800-160 MG TABLET 1 TABLET ORALLY TWICE A DAY MEDICATION LIST REVIEWED AND RECONCILED WITH THE PATIENT PAST MEDICAL HISTORY MICROHEMOTURIA ELEVATED PSA PROSTATE CANCER GERD CHRONIC BACK PAIN CARCINOMA OF BLADDER BASAL CELL CARCINOMA HYPERTENSION ALLERGIC RHINITIS INSOMNIA ARTHRALGIA-HIP CERVICALGIA ASTHMA BILATERAL KNEE PAIN CHRONIC OSTEOARTHRITIS PTSD ALLERGIES CHANTIX: NERVOUSNESS, JITTERY - SIDE EFFECTS GABAPENTIN: ALLERGY SILDENAFIL CITRATE: ALLERGY SOCIAL HISTORY GENERAL: TOBACCO USE ARE YOU A:CURRENT SMOKER ABOUT 2 PACKS A DAY ARE YOU INTERESTED IN QUITTING?NOT READY TO QUIT COUNSELED THE PATIENT ON SMOKING EFFECTS, EDUCATION [id number]/30/2021 LATEX QUESTIONNAIRE LATEX ALLERGY : HAVE YOU EVER DEVELOPED ANY TYPE OF REACTION AFTER HANDLING LATEX PRODUCTS SUCH RUBBER GLOVES, CONDOMS, DIAPHRAGMS, BALLOONS, SOCKS, OR UNDERWEAR?NO LATEX ALLERGY : HAVE YOU EVER DEVELOPED ANY TYPE OF REACTION DURING OR AFTER DENTAL APPOINTMENT, VAGINAL/RECTAL EXAMINATION, SURGICAL PROCEDURE, OR ANY OTHER EXPOSURE?NO DATE ASKED : 09/17/2020 LATEX RISK : HAVE YOU EVER HAD ANY DIFFICULTY BREATHING OR HIVES AFTER EATING OR HANDLING ANY FRUITS, OR VEGETABLES; SUCH KIWI, BANANAS, STONE FRUITS, OR CHESTNUTSNO LATEX RISK : DO YOU HAVE A PREVIOUS PERSONAL HISTORY OF MORE THAN NINE SURGERIES, SPINA BIFIDA, OR REPEATED CATHERIZATIONS? NO LATEX RISK : ARE YOU FREQUENTLY EXPOSED TO LATEX PRODUCTS IN YOUR OCCUPATION?NO ALCOHOL USE: NO. ALCOHOL SCREENING DID YOU HAVE A DRINK CONTAINING ALCOHOL IN THE PAST YEAR?NO POINTS0 INTERPRETATIONNEGATIVE RECREATIONAL DRUG USE DRUG USE?NO CAFFEINE CAFFEINE USE?YES 2 POTS OF COFFEE DAILY ZOROASTRIANISM ZOROASTRIANISM NO RESTORATION BELIEFS THAT WOULD IMPACT HEALTH CARE. 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 EXERCISE: VERY ACTIVE. MARITAL STATUS: . REVIEW OF SYSTEMS CONSTITUTIONAL: ANY RECENT FEVER NO . CHILLS NO . WEIGHT CHANGE OF UNKNOWN REASONS NO . GASTROENTEROLOGY: NEW UNEXPLAINABLE CHANGES IN BOWEL CONTROL NO . CONSTIPATION NO . GENITOURINARY: ANY NEW CHANGE IN BLADDER CONTROL? NO . NEUROLOGY: NEW ONSET DIZZINESS OR NEUROLOGICAL CHANGES NOT MENTIONED NO . NEW NUMBNESS OR PAIN PATTERNS NOT MENTIONED AND PERTINENT TO TODAY'S VISIT NO . CARDIOLOGY: NEW CHEST PRESSURE NO . PATIENT DENIES NO . RESPIRATORY: UNEXPLAINABLE COUGH NO . NEW SHORTNESS OF BREATH NO . VITAL SIGNS WT 152.6 LBS, HT 69 IN, BMI 22.53 INDEX, BP 148/66 MM HG, HR 68 /MIN, RR 18 /MIN, TEMP 98.0 F, OXYGEN SAT % 97%, SAFE IN ENV? (Y/N) YES, NA INITIALS AW [id number] CRUZ MA. EXAMINATION GENERAL EXAMINATION: GENERALNO ACUTE DISTRESS, WELL NOURISHED AND HYDRATED. PSYCHAPPROPRIATE MOOD AND AFFECT . LUNGS:CLEAR TO AUSCULTATION BILATERALLY, NO WHEEZES, RHONCHI, RALES. HEART:NO MURMURS, REGULAR RATE AND RHYTHM. BACK:DENIES POINT TENDERNESS ALONG LUMBAR SPINE. MUSCULOSKELETAL:EQUAL STRENGTH OF THE LOWER EXTREMITIES BILATERALLY. ASSESSMENTS SPONDYLOSIS OF LUMBOSACRAL REGION WITHOUT MYELOPATHY OR RADICULOPATHY - M47.817 (PRIMARY) TREATMENT SPONDYLOSIS OF LUMBOSACRAL REGION WITHOUT MYELOPATHY OR RADICULOPATHY MED: PAIN NORCO TABLET 5MG/325MG ORALLY HYDROCODONE/ACETAMINOPHEN (ORDERED FOR 10/21/2020) MEDICATION: VALIUM TAB 5MG ORALLY (DIAZEPAM) (ORDERED FOR 10/21/2020) SALINE LOCK (ORDERED FOR 10/21/2020) NOTES: 70-YEAR-OLD MALE IN FOR CHRONIC PAIN FOLLOW-UP. MRI WAS REVIEWED WITH PATIENT TODAY. GIVEN PRESENTING SYMPTOMS AND RESULTS OF PHYSICAL EXAMINATION RECOMMENDED BILATERAL THERAPEUTIC LUMBAR FACET BLOCK L4-L5 L5-S1 WITH POST PROCEDURAL FOLLOW-UP. PATIENT HAS EXPRESSED UNDERSTANDING OF AND WAS IN AGREEMENT WITH TREATMENT PLAN. GIVEN TIME TO ASK QUESTIONS AND EXPRESS CONCERNS. CLINICAL NOTES: PREPROCEDURE AND PROCEDURE INFORMATION PRINTED AND PROVIDED TO PATIENT. PATIENT VERBALIZED AN UNDERSTANDING. LYNDA CRUZ MA. DISPOSITION & COMMUNICATION FOLLOW UP POST PROCEDURE (REASON: B, BILATERAL THERAPEUTIC LUMBAR FACET BLOCK L4-L5,L5-S1) ELECTRONICALLY SIGNED BY ARLETTE CLAYTON ON 10/14/2020 AT 12:38 PM EDT DISCLAIMER : THIS IS A VISIT SUMMARY EXTRACTED FROM THE [employer] CHART. IT IS NOT A COPY OF THE [employer] PROGRESS NOTE. CONSTANZA
== END ==
LOC: M PAIN 09:45
PROVIDERS: ATTEND Family Medicine
DX: M47.817 Spondylosis without myelopathy or radiculopathy, lumbosacral region (principal); G89.29 Other chronic pain; R73.03 Prediabetes; K21.9 Gastro-esophageal reflux disease without esophagitis; G47.00 Insomnia, unspecified; J45.909 Unspecified asthma, uncomplicated; F17.210 Nicotine dependence, cigarettes, uncomplicated; Z86.59 Personal history of other mental and behavioral disorders; Z88.8 Allergy status to other drugs, medicaments and biological substances; Z79.899 Other long term (current) drug therapy

== ENCOUNTER → 2020-10-21 | Outpatient (CLI) | payer OTHER, MEDICARE ==
[~2020-10-21] MED LIST changes: +BUPIVACAINE HCL 0.25% 30ML VIAL As Ordered ONE; +ISOVUE-M 300 61% 15ML VIAL As Ordered ONE; +LIDOCAINE 1% SDV 30ML VIAL As Ordered ONE; +NORCO, ANEXSIA 5/325MG TABLET (HYDROcodone/ACETAMINOPHEN) As Ordered ONE; +TRIAMCINOLONE ACETONIDE SUSP 40 MG/ML VIAL (J3301) As Ordered ONE; +diazePAM 5MG TABLET As Ordered ONE
--- NOTE | 2020-10-21 12:27 | REP ---
INDICATION: BILATERAL THERAPEUTIC LUMBAR FACET BLOCK. COMPARISON: None. TECHNIQUE: Two C-arm views lower lumbar spine. FINDINGS: [place] are seen along the lower lumbar facet joints bilaterally. A small amount of contrast is injected. IMPRESSION: 15 seconds fluoroscopy time utilized. <Electronically signed by Antonio Somers > 10/21/20 [id number]
--- NOTE | 2020-10-23 00:19 | ECWPNPC ---
PATIENT NAME: DELVIN VILLALOBOS : 1950 GENDER: MALE VISIT DATE: 10/21/2020 DISCHARGE DATE: 10/21/20 1219 VISIT LOCKED DATE TIME: PHYSICIAN: KAYLEN DE LA TORRE MD RESOURCE: KAYLEN DE LA TORRE MD REASON FOR APPOINTMENT 1. BILATERAL THERAPEUTIC LUMBAR FACET BLOCK L4-L5,L5-S1 HISTORY OF PRESENT ILLNESS GENERAL: HPI -.. - -. FALL RISK SCREENING: SCREENING NO FALLS REPORTED IN THE LAST YEAR. PAIN SCREENING: PATIENT HAS A COMPLAINT OF ACUTE OR CHRONIC PAIN :YES LOCATION OF PAIN:LOW BACK INTENSITY OF PAIN (SCALE OF 1 TO 10):3 WORSE IN THE MORNING. WHAT DOES YOUR PAIN FEEL LIKE:ACHING, INTERMITTENT DURATION:INTERMITTENT, AWAKENS FROM SLEEP PAIN IS INCREASED BY:ACTIVITIES, PROLONGED STANDING, OTHERS INACTIVITY, PROLONGED LAYING DOWN PAIN IS DECREASED BY:USE OF PAIN MEDICATIONS PLAN/GOALS/TREATMENT/INTERVENTION/FOLLOW UP:SEE PLAN NURSING NOTE: - -. PAIN CENTER INTAKE QUESTIONS: DO YOU HAVE A HISTORY OF MRSA? :NO DO YOU TAKE A BLOOD THINNERS? :NO DO YOU HAVE ANY BLEEDING DISORDERS? :NO ANY NEW NUMBNESS OR WEAKNESS IN YOUR LEGS OR ARMS? :NO ANY PACEMAKER,DEFIBRILLATOR, OR DORSAL COLUMN STIMULATOR? :NO DO YOU HAVE ANY RASHES OR OPEN SORES? :NO ARE YOU ALLERGIC TO IV DYE? :NO ARE YOU DIABETIC? :YES PREDIABETIC ANY NEW PROBLEMS WITH YOUR MEDICATIONS? :NO HAVE YOU RECEIVED A VACCINE IN THE PAST 30 DAYS? :NO DO YOU PLAN TO RECEIVE A VACCINE IN THE NEXT 21 DAYS? :NO DO YOU NEED ANY PRESCRIPTION? :NO DO YOU TAKE ANY IMMUNOSUPPRESSIVE MEDICATIONS? :NO ANY HISTORY OF SEIZURES? :NO ANY HISTORY OF CARDIAC ISSUES OR EVENTS? :NO DO YOU HAVE ANY KIDNEY OR LIVER DISEASE? :NO DO YOU HAVE SLEEP APNEA? :NO ANY RECENT HEAD INJURY? :NO DO YOU HAVE ANY NEW INFECTIONS? :NO IS THERE A CHANCE YOU COULD BE ? :N/A ARE YOU BREAST FEEDING? :N/A WHEN DID YOU LAST EAT? : 10/20/2020 1600 WHEN DID YOU LAST DRINK? : 10/21/2020 0300 WHAT DID YOU LAST DRINK? : COFFEE NAME OF PERSON DRIVING YOU HOME? : (CORY) DO YOU HAVE ANY OTHER QUESTIONS OR CONCERNS? : NO CURRENT MEDICATIONS TAKING ACETAMINOPHEN 325 MG CAPSULE 1 CAPSULE NEEDED ORALLY EVERY 6 HRS TAKING HYDROCODONE-ACETAMINOPHEN 7.5-325 MG TABLET 1 TABLET NEEDED ORALLY THREE TIMES DAILY NEEDED TAKING RAMIPRIL 2.5 MG CAPSULE 1 CAPSULE ORALLY ONCE A DAY TAKING MULTI COMPLETE - CAPSULE ORALLY TAKING ALBUTEROL , NOTES: 100/IPRATRO 20 MCG TAKING ENSURE COMPLETE SHAKE - LIQUID ORALLY TAKING ATORVASTATIN CALCIUM 80 MG TABLET 1 TABLET ORALLY ONCE A DAY TAKING HYDROCHLOROTHIAZIDE 12.5 MG CAPSULE 1 CAPSULE IN THE MORNING ORALLY ONCE A DAY TAKING OMEPRAZOLE 20 MG CAPSULE DELAYED RELEASE 1 CAPSULE ORALLY ONCE A DAY TAKING BUSPIRONE HCL 10 MG TABLET 1 TABLET ORALLY TWICE DAILY AT BEDTIME NEEDED TAKING DOCUSATE SODIUM 100 MG CAPSULE 1 CAPSULE NEEDED ORALLY ONCE A DAY NOT-TAKING CARBOXYMETHYLCELLUL-GLYCERIN 0.5-0.9 % SOLUTION DIRECTED OPHTHALMIC NOT-TAKING DICLO GEL 1 % KIT TRANSDERMAL NOT-TAKING DEXTRAN 70-HYPROMELLOSE 0.1-0.3 % SOLUTION OPHTHALMIC NOT-TAKING CIPROFLOXACIN HCL 500 MG TABLET 1 TABLET ORALLY DAILY NOT-TAKING COLACE 100 MG CAPSULE 1 CAPSULE ORALLY BID NOT-TAKING KETOROLAC TROMETHAMINE 10 MG TABLET 1 TABLET WITH FOOD OR MILK ORALLY EVERY 6 HRS NEEDED FOR PAIN NOT-TAKING HYDROCODONE-ACETAMINOPHEN 5-325 MG TABLET 1 TABLET NEEDED ORALLY EVERY 6 HRS NOT-TAKING BACTRIM DS 800-160 MG TABLET 1 TABLET ORALLY TWICE A DAY NOT-TAKING IBUPROFEN 400 MG TABLET 1 TABLET WITH FOOD OR MILK NEEDED ORALLY THREE TIMES A DAY DISCONTINUED OMEPRAZOLE MAGNESIUM 20 MG TABLET DELAYED RELEASE 1 TABLET 30 MINUTES BEFORE MORNING MEAL ORALLY ONCE A DAY DISCONTINUED NORCO 5-325 MG TABLET 1-2 TABLET(S) ORALLY EVERY 6 HRS NEEDED FOR PAIN (MDD 8) MEDICATION LIST REVIEWED AND RECONCILED WITH THE PATIENT PAST MEDICAL HISTORY MICROHEMOTURIA ELEVATED PSA PROSTATE CANCER GERD CHRONIC BACK PAIN CARCINOMA OF BLADDER BASAL CELL CARCINOMA HYPERTENSION ALLERGIC RHINITIS INSOMNIA ARTHRALGIA-HIP CERVICALGIA ASTHMA BILATERAL KNEE PAIN CHRONIC OSTEOARTHRITIS PTSD ALLERGIES CHANTIX: NERVOUSNESS, JITTERY - SIDE EFFECTS GABAPENTIN: UNKNOWN - ALLERGY SILDENAFIL CITRATE: UNKNOWN - ALLERGY SURGICAL HISTORY TOOK FLUID OFF KNEE CANCER REMOVED FROM BACK TRUS BIOPSY (PROSTATE) AND CYSTO 04/2018 TURBT 05/31/2018 PROSTATECTOMY 07/07/2018 RIGHT SHOULDER 05/2019 HERNIA SURGERY SOCIAL HISTORY GENERAL: TOBACCO USE ARE YOU A:CURRENT SMOKER ABOUT 2 PACKS A DAY ARE YOU INTERESTED IN QUITTING?NOT READY TO QUIT COUNSELED THE PATIENT ON SMOKING EFFECTS, EDUCATION [id number]/07/2021 VAPORNO E-CIGARETTENO LATEX QUESTIONNAIRE LATEX ALLERGY : HAVE YOU EVER DEVELOPED ANY TYPE OF REACTION AFTER HANDLING LATEX PRODUCTS SUCH RUBBER GLOVES, CONDOMS, DIAPHRAGMS, BALLOONS, SOCKS, OR UNDERWEAR?NO LATEX ALLERGY : HAVE YOU EVER DEVELOPED ANY TYPE OF REACTION DURING OR AFTER DENTAL APPOINTMENT, VAGINAL/RECTAL EXAMINATION, SURGICAL PROCEDURE, OR ANY OTHER EXPOSURE?NO DATE ASKED : 09/17/2020 LATEX RISK : HAVE YOU EVER HAD ANY DIFFICULTY BREATHING OR HIVES AFTER EATING OR HANDLING ANY FRUITS, OR VEGETABLES; SUCH KIWI, BANANAS, STONE FRUITS, OR CHESTNUTSNO LATEX RISK : DO YOU HAVE A PREVIOUS PERSONAL HISTORY OF MORE THAN NINE SURGERIES, SPINA BIFIDA, OR REPEATED CATHERIZATIONS? NO LATEX RISK : ARE YOU FREQUENTLY EXPOSED TO LATEX PRODUCTS IN YOUR OCCUPATION?NO ALCOHOL USE: NO. LUNG CANCER SCREENING SMOKING STATUS:CURRENT SMOKER IS THE PATIENT BETWEEN THE AGE OF 53 AND 75?YES ALCOHOL SCREENING DID YOU HAVE A DRINK CONTAINING ALCOHOL IN THE PAST YEAR?NO POINTS0 INTERPRETATIONNEGATIVE RECREATIONAL DRUG USE DRUG USE?NO CAFFEINE CAFFEINE USE?YES 2 POTS OF COFFEE DAILY RASTAFARI RASTAFARI NO ROMAN CATHOLIC BELIEFS THAT WOULD IMPACT HEALTH CARE. 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 EXERCISE: VERY ACTIVE. MARITAL STATUS: . HOSPITALIZATION/MAJOR DIAGNOSTIC PROCEDURE SPENT 6 WEEKS IN HOSPITAL FOR LUNG ISSUES YEARS AGO D/T JOB VITAL SIGNS WT 144.8 LBS, HT 69 IN, BMI 21.38 INDEX, BP 113/71 MM HG, HR 88 /MIN, RR 18 /MIN, TEMP 97.7 F, OXYGEN SAT % 99%, NA INITIALS SC 11:20. EXAMINATION GENERAL: A HISTORY AND PHYSICAL EXAM ON THE PATIENT WAS DONE ON 10/11/2020 (DATE OF ORIGINAL ASSESSMENT) IN PREPARATION OF SURGERY/PROCEDURE. I HAVE NOW REASSESSED THIS PATIENT'S HEALTH STATUS AND PERFORMED AN UPDATED EXAM TODAY. ALL CHANGES IN THE PATIENT'S HISTORY, PHYSICAL EXAM, PRE-EXISTING CONDITONS, AND INDICATIONS/CONTRAINDICATIONS TO THE PLANNED PROCEDURE AND ANESTHESIA ARE DOCUMENTED AND EVALUATED BELOW. I ATTEST TO THE ADEQUACY AND APPROPRIATENESS OF MY ASSESSMENT, AND CONFIRM THE NECESSITY FOR THE PLANNED PROCEDURE. THE PATIENT IS ALERT, ORIENTED TIMES THREE AND COOPERATIVE. LUNGS ARE CLEAR TO AUSCULTATION. HEART SHOWS REGULAR RHYTHM, NO MURMURS AND NO GALLOPS. ASSESSMENTS SPONDYLOSIS OF LUMBOSACRAL REGION WITHOUT MYELOPATHY OR RADICULOPATHY - M47.817 (PRIMARY) SPONDYLOSIS WITHOUT MYELOPATHY OR RADICULOPATHY, LUMBAR REGION - M47.816 TREATMENT SPONDYLOSIS OF LUMBOSACRAL REGION WITHOUT MYELOPATHY OR RADICULOPATHY [facility] FACET BLOCK (PAIN)[id number] COMPLETION OF PROCEDURAL VISIT WHEN MEETS CRITERIAIVAN BEDOYA 10/21/2020 12:17:03 PM > 1215 CRITERIA MET MEDICATION: VALIUM TAB 5MG ORALLY (DIAZEPAM)BRIAN TALLEY RN 10/21/2020 11:10:20 AM > VERIFIED. IVAN BEDOYA 10/21/2020 11:23:30 AM > ADMINISTERED SALINE LOCKIVAN BEDOYA 10/21/2020 11:29:47 AM > #22 SL STARTED IN RIGHT AC BY Linden TALLEY RN. SITE ASYMPTOMATIC, FLUSHES WELL. 2 FAILED ATTEMPTS IN RIGHT FA ASYMPTOMATIC, UNABLE TO FLUSH CATHETER. PATIENT TOLERATED PROCEDURE WELL. MED: PAIN NORCO TABLET 5MG/325MG ORALLY HYDROCODONE/ACETAMINOPHENBRIAN TALLEY RN 10/21/2020 11:10:38 AM > VERIFIED. IVAN BEDOYA 10/21/2020 11:23:49 AM > ADMINISTERED OTHERS NOTES: 10/18/20 1630 PAT COMPLETED. Scott CRUZ DRAG SEINER. PROCEDURES PAIN NURSING RECORD PROCEDURE IN ROOM 1139, PHYSICIAN IN ROOM 1150, START 1154, FINISH 1201, PHYSICIAN OUT OF ROOM 1202, OUT OF ROOM 1207, ECG NORMAL SINUS, PATIENT SHIELDED YES, SAFETY STRAP YES, PREP CHLOROPREP Endy VÁSQUEZ RN, DRESSING TEGADERM DR. DE LA TORRE LOC: IVAN BEDOYA 10/21/2020 11:46:16 AM > , 1. ALERT, ORIENTED RESP: IVAN BEDOYA 10/21/2020 11:46:19 AM > , 1. REGULAR, NO DYSPNEA COLOR: IVAN BEDOYA 10/21/2020 11:46:22 AM > , 1. PINK SKIN: IVAN BEDOYA 10/21/2020 11:46:26 AM > , 1. WARM, DRY POSITION: IVAN BEDOYA 10/21/2020 11:46:29 AM > , 1. PRONE VITALS: IVAN BEDOYA 10/21/2020 11:46:32 AM > 145/79-71-18-96% , IVAN BEDOYA 10/21/2020 11:59:07 AM > 158/79-68-18-95% 10/21/2020 1217 137/73-77-16-97% NOTES Martina MEZA RN COMPLETION OF PROCEDURE APPOINTMENT: POST PAIN 3 BILATERAL LOW BACK, DRESSING SITE DRY AND INTACT BILATERAL LOW BACK, IV DISCONTINUED, SITE CLEAR, CATHETER INTACT, GAIT STEADY, TEACHING COMPLETED, PATIENT ACKNOWLEDGES UNDERSTANDING YES PATIENT VERBALIZES UNDERSTANDING OF POST PROCEDURE INSTRUCTIONS REVIEWED, PROCEDURE APPOINTMENT COMPLETED AT 1218 BY: Martina MEZA RN PN LUMBAR FACET BLOCK THERAPEUTIC PRE PROCEDURE DIAGNOSIS LUMBAR SPONDYLOSIS, LUMBOSACRAL SPONDYLOSIS POST PROCEDURE DIAGNOSIS LUMBAR SPONDYLOSIS, LUMBOSACRAL SPONDYLOSIS PROCEDURE BILATERAL L4-L5 AND BILATERAL L5-S1 LUMBAR FACET THERAPEUTIC BLOCK SURGEON DR. KAYLEN DE LA TORRE BONUS CLERK NONE ANESTHESIA LOCAL PRE PROCEDURE NOTE THE PATIENT HAS A HISTORY OF CHRONIC LOW BACK PAIN. I EVALUATED THE PATIENT AND REVIEWED THE CHART. I WENT OVER THE RISKS, ALTERNATIVES, AND BENEFITS ASSOCIATED WITH THIS PROCEDURE. THE PATIENT WOULD LIKE TO PROCEED AND GIVES CONSENT TO PERFORM THE PROCEDURE. THE PATIENT DENIES UNEXPLAINABLE WEIGHT LOSS, FEVER, CHILLS, OR NEW CHANGES IN URINARY OR BOWEL CONTROL. THE PATIENT IS COVID-19 NEGATIVE DESCRIPTION OF PROCEDURE THE PATIENT WAS BROUGHT TO THE PROCEDURE ROOM AND PLACED IN THE PRONE POSITION. THE LUMBOSACRAL AREA WAS CLEANED WITH CHLORHEXIDINE AND DURAPREP SOLUTION AND DRAPED ASEPTICALLY. THE PROCEDURE WAS DONE UNDER STERILE CONDITIONS. A TIMEOUT WAS PERFORMED WHERE THE CONSENTED SITE WAS VERIFIED WITH EVERYONE IN THE ROOM. UNDER FLUOROSCOPIC GUIDANCE, THE TARGET POINT WAS SELECTED AT THE RIGHT AND LEFT L4-L5 AND RIGHT AND LEFT L5-S1 FACET JOINTS. TARGET POINT WAS SELECTED AFTER LATERAL ROTATION AND TILT OF THE MAGNIFIER OF THE C-ARM. I CONFIRMED AGAIN THE SITE OF TARGET. LIDOCAINE 0.5% WAS USED TO NUMB THE SKIN AND THE SUBCUTANEOUS TISSUE BELOW IT. SPINAL NEEDLES, 22-GAUGE, WERE ADVANCED UNDER FLUOROSCOPIC GUIDANCE AND FOLLOWING PATIENT FEEDBACK UNTIL THE TARGETS WERE TOUCHED. THE POSITION OF THE NEEDLES WAS VERIFIED WITH AP AND LATERAL VIEWS. AFTER PROPER POSITION OF THE NEEDLES WAS ACHIEVED, ISOVUE-M DYE 30%, 0.1 ML, WAS INJECTED SHOWING ADEQUATE SPREAD OF THE DYE. KENALOG 10 MG WAS INJECTED AT EACH SITE. THEN, A SOLUTION OF 1.0 ML OF BUPIVACAINE 0.125% OF WAS USED TO FLUSH EACH SITE. THE MEDICATION WAS VERIFIED WITH THE NURSE. THERE WAS NO EVIDENCE OF BLOOD, PARESTHESIA OR CEREBROSPINAL FLUID DURING THE PROCEDURE. THE PATIENT WAS SENT TO THE RECOVERY ROOM. THE PATIENT WAS MOVING THE EXTREMITIES AND DOING WELL. THERE WERE NO COMPLICATIONS DURING THE PROCEDURE. ESTIMATED BLOOD LOSS WAS LESS THAN 5 ML. FLUOROSCOPY TIME WAS 15 SECONDS POST PROCEDURE NOTE DEPENDING ON THE RESULTS, CONSIDER AN EPIDURAL AT L4-L5 OR L5-S1. THE PATIENT WILL BE SEEN IN A FOLLOW UP IN THE NEXT FEW WEEKS. I AM LOOKING FOR LONG LASTING RELIEF FOR THE PATIENT WITH THIS INTERVENTION. INSTRUCTIONS WERE GIVEN, QUESTIONS WERE ANSWERED, AND THE PATIENT EXPRESSED UNDERSTANDING AND AGREES WITH THE PLAN. I, SAGRARIO DARBY, DOCUMENTED THE ABOVE INFORMATION ACTING A SCRIBE FOR DR. DE LA TORRE. I HAVE REVIEWED THE ABOVE DOCUMENT, WRITTEN BY SAGRARIO DARBY, ARCHITECTURE MANAGER, AND I VERIFY THAT IT IS ACCURATE +. PROCEDURE CODES 20852 INJ PARAVERT F JNT L/S 1 LEV, MODIFIERS: 50 [id number] INJ PARAVERT F JNT L/S 2 LEV, MODIFIERS: 50 DISPOSITION & COMMUNICATION FOLLOW UP FOLLOW UP WITH PROGRAM OFFICER (REASON: POST BILATERAL THERAPEUTIC LUMBAR FACET BLOCK L4-L5, L5-S1) ELECTRONICALLY SIGNED BY KAYLEN DE LA TORRE MD, MD ON 10/22/2020 AT 05:24 PM EDT DISCLAIMER : THIS IS A VISIT SUMMARY EXTRACTED FROM THE [employer] CHART. IT IS NOT A COPY OF THE [employer] PROGRESS NOTE. [place]
== END ==
LOC: M PAIN 11:20
PROVIDERS: ATTEND Anesthesiology
DX: M47.817 Spondylosis without myelopathy or radiculopathy, lumbosacral region (principal); M47.816 Spondylosis without myelopathy or radiculopathy, lumbar region; R73.03 Prediabetes; K21.9 Gastro-esophageal reflux disease without esophagitis; G47.00 Insomnia, unspecified; J45.909 Unspecified asthma, uncomplicated; F17.210 Nicotine dependence, cigarettes, uncomplicated; Z86.59 Personal history of other mental and behavioral disorders; Z88.8 Allergy status to other drugs, medicaments and biological substances; Z79.899 Other long term (current) drug therapy
CPT/HCPCS: 64493; 64494; J3301; Q9967

== ENCOUNTER → 2020-11-04 | Outpatient (CLI) | payer OTHER, MEDICARE ==
[~2020-11-04] MED LIST changes: -BUPIVACAINE HCL 0.25% 30ML VIAL As Ordered ONE; -ISOVUE-M 300 61% 15ML VIAL As Ordered ONE; -LIDOCAINE 1% SDV 30ML VIAL As Ordered ONE; -NORCO, ANEXSIA 5/325MG TABLET (HYDROcodone/ACETAMINOPHEN) As Ordered ONE; -TRIAMCINOLONE ACETONIDE SUSP 40 MG/ML VIAL (J3301) As Ordered ONE; -diazePAM 5MG TABLET As Ordered ONE
--- NOTE | 2020-11-06 01:36 | ECWPNPC ---
PATIENT NAME: DELVIN VILLALOBOS : 1950 GENDER: MALE VISIT DATE: 11/04/2020 DISCHARGE DATE: 11/04/20 1006 VISIT LOCKED DATE TIME: PHYSICIAN: SINGH TALBOT RESOURCE: SINGH TALBOT REASON FOR APPOINTMENT 1. POST BILATERAL THERAPEUTIC LUMBAR FACET BLOCK L4-L5,L5-S1 HISTORY OF PRESENT ILLNESS GENERAL: HPI 70-YEAR-OLD MALE IN FOR POST BILATERAL THERAPY LUMBAR FACET BLOCK FOLLOW-UP. PATIENT FEELS THE PROCEDURE WAS UNSUCCESSFUL. HE RATES HIS PAIN CURRENTLY AT A 7 OUT OF 10 AND DESCRIBES IT PAINFUL.. -. FALL RISK SCREENING: SCREENING : NO FALLS REPORTED IN THE LAST YEAR. PAIN SCREENING: PATIENT HAS A COMPLAINT OF ACUTE OR CHRONIC PAIN :YES LOCATION OF PAIN:LOW BACK, LEG(S) INTENSITY OF PAIN (SCALE OF 1 TO 10):7 WHAT DOES YOUR PAIN FEEL LIKE: PAINFUL DURATION:INTERMITTENT PAIN IS INCREASED BY:ACTIVITIES PAIN IS DECREASED BY:USE OF PAIN MEDICATIONS NURSING NOTE: -. PAIN CENTER INTAKE QUESTIONS: DO YOU HAVE A HISTORY OF MRSA? :NO DO YOU TAKE A BLOOD THINNERS? :NO DO YOU HAVE ANY BLEEDING DISORDERS? :NO ANY NEW NUMBNESS OR WEAKNESS IN YOUR LEGS OR ARMS? :YES HANDS FALL ASLEEP ANY PACEMAKER,DEFIBRILLATOR, OR DORSAL COLUMN STIMULATOR? :NO DO YOU HAVE ANY RASHES OR OPEN SORES? :NO ARE YOU ALLERGIC TO IV DYE? :NO ARE YOU DIABETIC? :NO ANY NEW PROBLEMS WITH YOUR MEDICATIONS? :NO HAVE YOU RECEIVED A VACCINE IN THE PAST 30 DAYS? :NO DO YOU PLAN TO RECEIVE A VACCINE IN THE NEXT 21 DAYS? :NO DO YOU NEED ANY PRESCRIPTION? :NO DO YOU TAKE ANY IMMUNOSUPPRESSIVE MEDICATIONS? :NO DO YOU HAVE ANY KIDNEY OR LIVER DISEASE? :NO IS THERE A CHANCE YOU COULD BE ? :NO ARE YOU BREAST FEEDING? :NO CURRENT MEDICATIONS TAKING ACETAMINOPHEN 325 MG CAPSULE 1 CAPSULE NEEDED ORALLY EVERY 6 HRS TAKING HYDROCODONE-ACETAMINOPHEN 7.5-325 MG TABLET 1 TABLET NEEDED ORALLY THREE TIMES DAILY NEEDED TAKING RAMIPRIL 2.5 MG CAPSULE 1 CAPSULE ORALLY ONCE A DAY TAKING MULTI COMPLETE - CAPSULE ORALLY TAKING ALBUTEROL , NOTES: 100/IPRATRO 20 MCG TAKING ENSURE COMPLETE SHAKE - LIQUID ORALLY TAKING ATORVASTATIN CALCIUM 80 MG TABLET 1 TABLET ORALLY ONCE A DAY TAKING HYDROCHLOROTHIAZIDE 12.5 MG CAPSULE 1 CAPSULE IN THE MORNING ORALLY ONCE A DAY TAKING OMEPRAZOLE 20 MG CAPSULE DELAYED RELEASE 1 CAPSULE ORALLY ONCE A DAY TAKING BUSPIRONE HCL 10 MG TABLET 1 TABLET ORALLY TWICE DAILY AT BEDTIME NEEDED TAKING DOCUSATE SODIUM 100 MG CAPSULE 1 CAPSULE NEEDED ORALLY ONCE A DAY NOT-TAKING CARBOXYMETHYLCELLUL-GLYCERIN 0.5-0.9 % SOLUTION DIRECTED OPHTHALMIC NOT-TAKING DICLO GEL 1 % KIT TRANSDERMAL NOT-TAKING DEXTRAN 70-HYPROMELLOSE 0.1-0.3 % SOLUTION OPHTHALMIC NOT-TAKING CIPROFLOXACIN HCL 500 MG TABLET 1 TABLET ORALLY DAILY NOT-TAKING COLACE 100 MG CAPSULE 1 CAPSULE ORALLY BID NOT-TAKING KETOROLAC TROMETHAMINE 10 MG TABLET 1 TABLET WITH FOOD OR MILK ORALLY EVERY 6 HRS NEEDED FOR PAIN NOT-TAKING HYDROCODONE-ACETAMINOPHEN 5-325 MG TABLET 1 TABLET NEEDED ORALLY EVERY 6 HRS NOT-TAKING BACTRIM DS 800-160 MG TABLET 1 TABLET ORALLY TWICE A DAY NOT-TAKING IBUPROFEN 400 MG TABLET 1 TABLET WITH FOOD OR MILK NEEDED ORALLY THREE TIMES A DAY MEDICATION LIST REVIEWED AND RECONCILED WITH THE PATIENT PAST MEDICAL HISTORY MICROHEMOTURIA ELEVATED PSA PROSTATE CANCER GERD CHRONIC BACK PAIN CARCINOMA OF BLADDER BASAL CELL CARCINOMA HYPERTENSION ALLERGIC RHINITIS INSOMNIA ARTHRALGIA-HIP CERVICALGIA ASTHMA BILATERAL KNEE PAIN CHRONIC OSTEOARTHRITIS PTSD ALLERGIES CHANTIX: NERVOUSNESS, JITTERY - SIDE EFFECTS GABAPENTIN: UNKNOWN - ALLERGY SILDENAFIL CITRATE: UNKNOWN - ALLERGY SOCIAL HISTORY GENERAL: TOBACCO USE ARE YOU A:CURRENT SMOKER ABOUT 2 PACKS A DAY ARE YOU INTERESTED IN QUITTING?NOT READY TO QUIT COUNSELED THE PATIENT ON SMOKING EFFECTS, EDUCATION [id number]/07/2021 VAPORNO E-CIGARETTENO LATEX QUESTIONNAIRE LATEX ALLERGY : HAVE YOU EVER DEVELOPED ANY TYPE OF REACTION AFTER HANDLING LATEX PRODUCTS SUCH RUBBER GLOVES, CONDOMS, DIAPHRAGMS, BALLOONS, SOCKS, OR UNDERWEAR?NO LATEX ALLERGY : HAVE YOU EVER DEVELOPED ANY TYPE OF REACTION DURING OR AFTER DENTAL APPOINTMENT, VAGINAL/RECTAL EXAMINATION, SURGICAL PROCEDURE, OR ANY OTHER EXPOSURE?NO DATE ASKED : 09/17/2020 LATEX RISK : HAVE YOU EVER HAD ANY DIFFICULTY BREATHING OR HIVES AFTER EATING OR HANDLING ANY FRUITS, OR VEGETABLES; SUCH KIWI, BANANAS, STONE FRUITS, OR CHESTNUTSNO LATEX RISK : DO YOU HAVE A PREVIOUS PERSONAL HISTORY OF MORE THAN NINE SURGERIES, SPINA BIFIDA, OR REPEATED CATHERIZATIONS? NO LATEX RISK : ARE YOU FREQUENTLY EXPOSED TO LATEX PRODUCTS IN YOUR OCCUPATION?NO ALCOHOL USE: NO. LUNG CANCER SCREENING SMOKING STATUS:CURRENT SMOKER IS THE PATIENT BETWEEN THE AGE OF 53 AND 75?YES ALCOHOL SCREENING DID YOU HAVE A DRINK CONTAINING ALCOHOL IN THE PAST YEAR?NO POINTS0 INTERPRETATIONNEGATIVE RECREATIONAL DRUG USE DRUG USE?NO CAFFEINE CAFFEINE USE?YES 2 POTS OF COFFEE DAILY MORMON MORMON NO HINDU BELIEFS THAT WOULD IMPACT HEALTH CARE. 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 EXERCISE: VERY ACTIVE. MARITAL STATUS: . HOSPITALIZATION/MAJOR DIAGNOSTIC PROCEDURE SPENT 6 WEEKS IN HOSPITAL FOR LUNG ISSUES YEARS AGO D/T JOB REVIEW OF SYSTEMS CONSTITUTIONAL: ANY RECENT FEVER NO . CHILLS NO . WEIGHT CHANGE OF UNKNOWN REASONS NO . GASTROENTEROLOGY: NEW UNEXPLAINABLE CHANGES IN BOWEL CONTROL NO . CONSTIPATION NO . GENITOURINARY: ANY NEW CHANGE IN BLADDER CONTROL? NO . NEUROLOGY: NEW ONSET DIZZINESS OR NEUROLOGICAL CHANGES NOT MENTIONED NO . NEW NUMBNESS OR PAIN PATTERNS NOT MENTIONED AND PERTINENT TO TODAY'S VISIT NO . CARDIOLOGY: NEW CHEST PRESSURE NO . PATIENT DENIES NO . RESPIRATORY: UNEXPLAINABLE COUGH NO . NEW SHORTNESS OF BREATH NO . VITAL SIGNS WT 146.0 LBS, HT 69 IN, BMI 21.56 INDEX, BP 183/81 MM HG, HR 71 /MIN, RR 18 /MIN, TEMP 96.0 F, OXYGEN SAT % 98%, SAFE IN ENV? (Y/N) Y, NA INITIALS AW 0903, REVIEWED BY: STUART. EXAMINATION GENERAL EXAMINATION: GENERALNO ACUTE DISTRESS, WELL NOURISHED AND HYDRATED. PSYCHAPPROPRIATE MOOD AND AFFECT . LUNGS:CLEAR TO AUSCULTATION BILATERALLY, NO WHEEZES, RHONCHI, RALES. HEART:NO MURMURS, REGULAR RATE AND RHYTHM. BACK:POINT TENDER ALONG LUMBAR SPINE, STARTING SKIN SHOWS NO ERYTHEMA, ECCHYMOSIS, INCREASED WARMTH, AND/OR SKIN ERUPTIONS NOTED.. MUSCULOSKELETAL:NOTABLE WEAKNESS OF THE RIGHT LOWER EXTREMITY, LEFT LOWER EXTREMITY WITHIN NORMAL LIMITS. ASSESSMENTS OTHER CHRONIC PAIN - G89.29 (PRIMARY) INTERVERTEBRAL DISC DISORDER WITH RADICULOPATHY OF LUMBOSACRAL REGION - M51.17 TREATMENT OTHER CHRONIC PAIN PAIN PROCEDURE LOGDATE OF [id number]/10/2021PROCEDURE:BILATERAL THERAPEUTIC LUMBAR FACET BLOCK L4-L5, L5-L7DGCPFZ OF PRE SEDATEVALIUM 5MG; NORCO 5/325MGRESULT:UNSUCCESFULL MEDICATION: VALIUM TAB 5MG ORALLY (DIAZEPAM) (ORDERED FOR 11/11/2020) MEDICATION: NORCO TABLET 5MG/325MG ORALLY (HYDROCODONE/ACETAMINOPHEN) (ORDERED FOR 11/11/2020) INTERVERTEBRAL DISC DISORDER WITH RADICULOPATHY OF LUMBOSACRAL REGION NOTES: 70-YEAR-OLD MALE IN FOR POST BILATERAL THERAPEUTIC LUMBAR FACET BLOCK FOLLOW-UP. GIVEN PRESENTING SYMPTOMS, RESULTS OF PHYSICAL EXAMINATION, AND RECOMMENDATIONS FROM DR. DE LA TORRE RECOMMEND LUMBAR EPIDURAL STEROID INJECTIONS WITH POSTPROCEDURAL FOLLOW-UP. PATIENT EXPRESSED UNDERSTANDING OF AND WAS IN AGREEMENT WITH TREATMENT PLAN. GIVEN TIME TO ASK QUESTIONS AND EXPRESS CONCERNS. PROCEDURE CODES FA211 ESTABILISHED PATIENT [facility] CHARGE DISPOSITION & COMMUNICATION FOLLOW UP POST PROCEDURE (REASON: LUMBAR EPIDURAL STEROID INJECTION) ELECTRONICALLY SIGNED BY ARLETTE CLAYTON ON 11/05/2020 AT 09:51 AM EDT DISCLAIMER : THIS IS A VISIT SUMMARY EXTRACTED FROM THE [employer] CHART. IT IS NOT A COPY OF THE [employer] PROGRESS NOTE. CONSTANZA
== END ==
LOC: M PAIN 09:00
PROVIDERS: ATTEND Family Medicine
DX: G89.29 Other chronic pain (principal); M51.17 Intervertebral disc disorders with radiculopathy, lumbosacral region; K21.9 Gastro-esophageal reflux disease without esophagitis; G47.00 Insomnia, unspecified; J45.909 Unspecified asthma, uncomplicated; F17.210 Nicotine dependence, cigarettes, uncomplicated; Z86.59 Personal history of other mental and behavioral disorders; Z88.8 Allergy status to other drugs, medicaments and biological substances; Z79.899 Other long term (current) drug therapy

== ENCOUNTER → 2020-12-12 | Outpatient (CLI) | payer OTHER ==
--- NOTE | 2020-12-12 20:45 | REPVR ---
PROCEDURE INFORMATION: Exam: MR Lumbar Spine Without Contrast Exam date and time: 12/12/2020 12:16 PM Age: 70 years old Clinical indication: Low back pain TECHNIQUE: Imaging protocol: Multiplanar magnetic resonance images of the lumbar spine without intravenous contrast. COMPARISON: MRI-Spine, L.S. without con 09/25/2020 8:33 AM FINDINGS: Vertebral body heights are maintained. Modic type 1 edematous degenerative endplate change at L5-S1. No cord compression. No abnormal cord signal. Conus medullaris terminates at the L1 level. Paravertebral soft tissues are unremarkable. L1-L2: No significant canal or foraminal narrowing. L2-L3: No significant canal or foraminal narrowing. L3-L4: Broad-based disc bulge causes mild bilateral foraminal narrowing. No significant canal narrowing. L4-L5: Broad-based disc bulge and facet hypertrophy cause mild canal narrowing and mild bilateral foraminal narrowing. L5-S1: Broad-based disc bulge and facet hypertrophy cause mild canal narrowing. Slight effacement of the right lateral recess. Mild left and moderate right foraminal narrowing. IMPRESSION: Spondylotic changes of the lumbar spine, as detailed above. Electronically signed by: Eric Delgadillo On 12/12/2020 20:44:56 PM
== END ==
LOC: M PLAIMG 11:44
PROVIDERS: ATTEND Internal Medicine
DX: M54.16 Radiculopathy, lumbar region (principal)

== ENCOUNTER → 2021-02-27 | Outpatient (CLI) | payer OTHER, MEDICARE | LOC: M LABSMTC 09:29 | PROVIDERS: ATTEND Anesthesiology | DX: Z01.812 Encounter for preprocedural laboratory examination (principal); Z20.822 Contact with and (suspected) exposure to COVID-19 ==

== ENCOUNTER → 2021-03-04 | Day surgery (SDC) | payer OTHER ==
[~2021-03-04] VITALS: Ht 175.3 cm; Wt 63.0 kg
[~2021-03-04] MED LIST changes: +LIDOCAINE 2% 100MG/5ML SDV (FOR ANES.) As Ordered ONE; +NS 1,000 ML IV ONE; +fentaNYL 100 MCG/2 ML INJECTION (J3010) As Ordered ONE; +propofoL 500 MG/50 ML VIAL As Ordered ONE
--- NOTE | 2021-03-04 08:21 | ROOR ---
Patient Name: Almas Anderson Procedure Date: 03/04/2021 7:33 AM Date of : 1950 Age: 70 Room: [facility] Gender: Male Note Status: Finalized Procedure: Upper GI endoscopy Indications: Follow-up of esophageal reflux Providers: Gurpreet Logan MD Referring MD: Erich Cloud MD Requesting Provider: Medicines: Monitored Anesthesia Care Complications: No immediate complications. Procedure: Pre-Anesthesia Assessment: - Prior to the procedure, a History and Physical was performed, and patient medications and allergies were reviewed. The patient is competent. The risks and benefits of the procedure and the sedation options and risks were discussed with the patient. All questions were answered and informed consent was obtained. Patient identification and proposed procedure were verified by the physician, the nurse and the second baker in the procedure room. Mental Status Examination: alert and oriented. Airway Examination: normal oropharyngeal airway and neck mobility. Prophylactic Antibiotics: The patient does not require prophylactic antibiotics. Prior Anticoagulants: The patient has taken no previous anticoagulant or antiplatelet agents. ASA Grade Assessment: III - A patient with severe systemic disease. After reviewing the risks and benefits, the patient was deemed in satisfactory condition to undergo the procedure. The anesthesia plan was to use monitored anesthesia care (MAC). Immediately prior to administration of medications, the patient was re-assessed for adequacy to receive sedatives. The heart rate, respiratory rate, oxygen saturations, blood pressure, adequacy of pulmonary ventilation, and response to care were monitored throughout the procedure. The physical status of the patient was re-assessed after the procedure. The Endoscope was introduced through the mouth, and advanced to the second part of duodenum. The upper GI endoscopy was accomplished without difficulty. The patient tolerated the procedure well. Findings: The examined esophagus was normal. Patchy mild inflammation characterized by erosions and erythema was found in the gastric fundus and in the gastric antrum. The first portion of the duodenum and second portion of the duodenum were normal. Impression: - Normal esophagus. - Acute gastritis. - Normal first portion of the duodenum and second portion of the duodenum. - No specimens collected. Recommendation: - Discharge patient to home. - Resume previous diet. - Continue present medications. - Return to endoscopist as previously scheduled. Procedure Code(s): --- Professional --- 17517, Esophagogastroduodenoscopy, flexible, transoral; diagnostic, including collection of specimen(s) by brushing or washing, when performed (separate procedure) Diagnosis Code(s): --- Professional --- K29.00, Acute gastritis without bleeding K21.9, Gastro-esophageal reflux disease without esophagitis CPT copyright 2019 [employer]. All rights reserved. The codes documented in this report are preliminary and upon medical coder review may be revised to meet current compliance requirements. Gurpreet Logan MD Gurpreet Logan MD 03/04/2021 8:21:12 AM Electronically signed by Gurpreet Logan MD Number of Addenda: 0 Note Initiated On: 03/04/2021 7:33 AM Estimated Blood Loss: Estimated blood loss: none.
--- NOTE | 2021-03-04 08:26 | ROOR ---
Patient Name: Almas Anderson Procedure Date: 03/04/2021 7:35 AM Date of : 1950 Age: 70 Room: [facility] Gender: Male Note Status: Finalized Procedure: Colonoscopy Indications: High risk colon cancer surveillance: Personal history of colonic polyps, Last colonoscopy: May 2013 Providers: Gurpreet Logan MD Referring MD: Erich Cloud MD Requesting Provider: Medicines: Monitored Anesthesia Care Complications: No immediate complications. Procedure: Pre-Anesthesia Assessment: - Prior to the procedure, a History and Physical was performed, and patient medications and allergies were reviewed. The patient is competent. The risks and benefits of the procedure and the sedation options and risks were discussed with the patient. All questions were answered and informed consent was obtained. Patient identification and proposed procedure were verified by the physician, the nurse and the veterinary meat inspector in the procedure room. Mental Status Examination: alert and oriented. Airway Examination: normal oropharyngeal airway and neck mobility. Prophylactic Antibiotics: The patient does not require prophylactic antibiotics. Prior Anticoagulants: The patient has taken no previous anticoagulant or antiplatelet agents. ASA Grade Assessment: III - A patient with severe systemic disease. After reviewing the risks and benefits, the patient was deemed in satisfactory condition to undergo the procedure. The anesthesia plan was to use monitored anesthesia care (MAC). Immediately prior to administration of medications, the patient was re-assessed for adequacy to receive sedatives. The heart rate, respiratory rate, oxygen saturations, blood pressure, adequacy of pulmonary ventilation, and response to care were monitored throughout the procedure. The physical status of the patient was re-assessed after the procedure. The Colonoscope was introduced through the anus and advanced to the cecum, identified by appendiceal orifice and ileocecal valve. The colonoscopy was performed without difficulty. The patient tolerated the procedure well. The quality of the bowel preparation was good. Findings: The perianal and digital rectal examinations were normal. A 3 mm polyp was found in the rectum. The polyp was sessile. The polyp was removed with a piecemeal technique using a cold biopsy forceps. Resection and retrieval were complete. Estimated blood loss was minimal. A diminutive polyp was found in the rectum. The polyp was sessile. There were multiple small pale rectal polyps consistent with hyperplastic polyps which were not biopsied. Impression: - One 3 mm polyp in the rectum, removed piecemeal using a cold biopsy forceps. Resected and retrieved. - One diminutive polyp in the rectum. Recommendation: - Discharge patient to home. - Resume previous diet. - Continue present medications. - Await pathology results. - Return to endoscopist as previously scheduled. Procedure Code(s): --- Professional --- 54560, Colonoscopy, flexible; with biopsy, single or multiple Diagnosis Code(s): --- Professional --- Z86.010, Personal history of colonic polyps K62.1, Rectal polyp CPT copyright 2019 [employer]. All rights reserved. The codes documented in this report are preliminary and upon bolt man review may be revised to meet current compliance requirements. Gurpreet Logan MD Gurpreet Logan MD 03/04/2021 8:26:21 AM Electronically signed by Gurpreet Logan MD Number of Addenda: 0 Note Initiated On: 03/04/2021 7:35 AM Estimated Blood Loss: Estimated blood loss was minimal.
[2021-03-04 09:03] VITALS: BP 126/58
== END | disposition home or self-care (01) ==
LOC: M OPP 06:50
PROVIDERS: ATTEND Surgery
DX: Z12.11 Encounter for screening for malignant neoplasm of colon (principal); Z86.010 Personal history of colon polyps; K62.1 Rectal polyp; K21.9 Gastro-esophageal reflux disease without esophagitis; K29.00 Acute gastritis without bleeding; Z85.46 Personal history of malignant neoplasm of prostate; Z85.51 Personal history of malignant neoplasm of bladder; Z79.82 Long term (current) use of aspirin; Z79.891 Long term (current) use of opiate analgesic; Z79.899 Other long term (current) drug therapy
CPT/HCPCS: 43235; 45380; 88305; J3010

== ENCOUNTER 2022-03-23 12:27 | Emergency (ER) | payer OTHER ==
[~2022-03-23] VITALS: Ht 172.7 cm; Wt 63.6 kg
[~2022-03-23 12:27] MED LIST changes: -LIDOCAINE 2% 100MG/5ML SDV (FOR ANES.) As Ordered ONE; -NS 1,000 ML IV ONE; -fentaNYL 100 MCG/2 ML INJECTION (J3010) As Ordered ONE; -propofoL 500 MG/50 ML VIAL As Ordered ONE
[2022-03-23 13:48] LABS: RSV AMPLIFICATION NEGATIVE (NEGATIVE)
[2022-03-23] MEDS ORDERED: NS 1,000 ML IV ONE (13:50)
[2022-03-23] MEDS ORDERED: methylPREDNISolone 125MG 2ML VIAL IV ONE (13:50)
[2022-03-23] MEDS ORDERED: ALBUTEROL 90 MCG/ACT 8GM HFA INHALER INH ONE (13:50)
[2022-03-23 14:21] LABS: BASO # 0.1 10^3/uL (0.0-0.2); BASO % 0.4 % (0.0-1.0); EOS # 0.1 10^3/uL (0.0-0.5); EOS % 0.5 % (0.0-3.0); HEMATOCRIT 39.7 % (42.0-52.0); HEMOGLOBIN 13.5 g/dl (13.5-17.5); LYMPH # 2.1 10^3/uL (1.5-5.0); LYMPH % 11.5 % (24.0-44.0); MEAN CORPUSCULAR HEMOGLOBIN 31.3 pg (27.0-33.0); MEAN CORPUSCULAR VOLUME 92.1 fl (80.0-96.0); MONO # 0.8 10^3/uL (0.0-0.8); MONO % 4.4 % (2.0-8.0); NEUTROPHILS % 82.8 % (36.0-66.0); PLATELET COUNT, AUTOMATED 284 10^3/uL (150-450); RED BLOOD COUNT 4.31 10^6/uL (4.30-6.10); WHITE BLOOD COUNT 18.1 10^3/uL (4.0-10.0)
[2022-03-23 15:20] LABS: BLOOD UREA NITROGEN 13 MG/DL (7-18); CALCIUM LEVEL 8.8 MG/DL (8.8-10.2); CARBON DIOXIDE LEVEL 29 MEQ/L (21-32); CHLORIDE LEVEL 106 MEQ/L (98-107); CREATININE FOR GFR 0.78 MG/DL (0.70-1.30); GLOMERULAR FILTRATION RATE > 60.0 (>42); GLUCOSE, FASTING 97 MG/DL (70-100); NT-PRO BNP 230 PG/ML (<125); SODIUM LEVEL 140 MEQ/L (136-145)
[2022-03-23] MEDS ORDERED: PRED10TA2 PO (16:11)
[2022-03-23] MEDS ORDERED: DOXY-342 PO (16:11)
[2022-03-23 16:42] VITALS: BP 129/58
== END 2022-03-23 16:46 | disposition home or self-care (01) ==
LOC: M ED 12:27
DX: J44.1 Chronic obstructive pulmonary disease with (acute) exacerbation (principal); F17.200 Nicotine dependence, unspecified, uncomplicated; I10 Essential (primary) hypertension
CPT/HCPCS: 71046; 80047; 80048; 83880; 85025; 87631; 87880; 94640; 96361; 96374; 99284; J2930

== ENCOUNTER 2022-08-07 09:05 | Emergency (ER) | payer MEDICARE, OTHER ==
[~2022-08-07] VITALS: Ht 172.7 cm; Wt 66.0 kg
[~2022-08-07 09:05] MED LIST changes: +DOXY100C81 PO
[2022-08-07 09:06] VITALS: BP 141/72
== END 2022-08-07 11:07 | disposition home or self-care (01) ==
LOC: M ED 09:05
DX: J06.9 Acute upper respiratory infection, unspecified (principal); I10 Essential (primary) hypertension; E78.5 Hyperlipidemia, unspecified; J44.9 Chronic obstructive pulmonary disease, unspecified; F41.9 Anxiety disorder, unspecified; F32.A Depression, unspecified; F43.10 Post-traumatic stress disorder, unspecified; C61 Malignant neoplasm of prostate; Z79.51 Long term (current) use of inhaled steroids; Z79.02 Long term (current) use of antithrombotics/antiplatelets; Z79.82 Long term (current) use of aspirin

== ENCOUNTER 2023-04-04 07:52 | Emergency (ER) | payer MEDICARE, OTHER ==
[~2023-04-04] VITALS: Ht 175.3 cm; Wt 67.7 kg
[~2023-04-04 07:52] MED LIST changes: -DOXY100C81 PO; +DOXY100C82 PO
[2023-04-04] MEDS ORDERED: RAMI1CAP21 (08:06)
[2023-04-04] MEDS ORDERED: IBUPROFEN 800 MG TAB PO ONE (08:30)
[2023-04-04] MEDS ORDERED: GABAPENTIN 300 MG CAP PO ONE (08:30)
[2023-04-04] MEDS ORDERED: IBUP-1022 PO (09:26)
[2023-04-04] MEDS ORDERED: CYCL5TAB PO (09:26)
[2023-04-04] MEDS ORDERED: GABA-282 PO (09:26)
[2023-04-04 09:39] VITALS: BP 131/64; TEMP 97.8; O2SAT 96
== END 2023-04-04 09:41 | disposition home or self-care (01) ==
LOC: M ED 07:52
DX: S29.002A Unspecified injury of muscle and tendon of back wall of thorax, initial encounter (principal); S40.922A Unspecified superficial injury of left upper arm, initial encounter; M25.512 Pain in left shoulder; M54.6 Pain in thoracic spine; R03.0 Elevated blood-pressure reading, without diagnosis of hypertension; J44.9 Chronic obstructive pulmonary disease, unspecified; F43.10 Post-traumatic stress disorder, unspecified; K21.9 Gastro-esophageal reflux disease without esophagitis; C67.9 Malignant neoplasm of bladder, unspecified; Y92.79 Other farm location as the place of occurrence of the external cause; Y93.K9 Activity, other involving animal care; Y99.9 Unspecified external cause status; Z79.52 Long term (current) use of systemic steroids; Z79.82 Long term (current) use of aspirin; Z79.810 Long term (current) use of selective estrogen receptor modulators (SERMs); Z79.899 Other long term (current) drug therapy

== ENCOUNTER 2023-04-10 12:19 | Emergency (ER) | payer OTHER ==
[~2023-04-10] VITALS: Ht 175.3 cm; Wt 69.4 kg
[~2023-04-10 12:19] MED LIST changes: +CYCL5TAB PO; +GABA-282 PO; +IBUP-1022 PO; +RAMI1CAP21
[2023-04-10 12:20] VITALS: BP 121/84; TEMP 98.2; O2SAT 98
[2023-04-10] MEDS ORDERED: PERCOCET 5MG/325MG TAB PO ONE (13:50)
[2023-04-10] MEDS ORDERED: PERC5TAB12 PO (15:28)
== END 2023-04-10 15:37 | disposition home or self-care (01) ==
LOC: M ED 12:19
DX: S46.092D Other injury of muscle(s) and tendon(s) of the rotator cuff of left shoulder, subsequent encounter (principal); M47.812 Spondylosis without myelopathy or radiculopathy, cervical region; M51.34 Other intervertebral disc degeneration, thoracic region; F17.200 Nicotine dependence, unspecified, uncomplicated

== ENCOUNTER → 2023-05-03 | Outpatient (CLI) | payer OTHER ==
[~2023-05-03] MED LIST changes: +PERC5TAB12 PO
== END ==
LOC: M PLAIMG 13:21
PROVIDERS: ATTEND Physician Assistant
DX: M25.512 Pain in left shoulder (principal)

== ENCOUNTER 2024-10-12 09:09 | Day surgery (SDC) | payer MEDICARE, OTHER ==
[~2024-10-12] VITALS: Ht 170.2 cm; Wt 63.5 kg
[~2024-10-12 09:09] MED LIST changes: +ATOR-398 PO; -CYCL5TAB PO; +CYCL5TAB4 PO; +DOXY-442 PO; -DOXY100C82 PO; +FERR325T81 PO; +GABA-1172 PO; -GABA-282 PO; +LIDOCAINE 2% 100MG/5ML SDV (FOR ANES.) As Ordered ONE; -LIPI80TA PO; +RAMI1.258; -RAMI1CAP21; +propofoL 200 MG/20 ML VIAL As Ordered ONE
[2024-10-12 11:18] VITALS: TEMP 97.3
[2024-10-12] MEDS: IPRATROPIUM 0.5MG/ALBUTEROL 2.5MG INH SOL UD 3ML NEB ONE (11:24)
[2024-10-12 11:30] VITALS: BP 128/78; O2SAT 95
== END 2024-10-12 11:45 | disposition home or self-care (01) ==
LOC: M OPP 09:09
PROVIDERS: ATTEND Surgery
DX: K63.5 Polyp of colon (principal); K57.30 Diverticulosis of large intestine without perforation or abscess without bleeding; Z86.0100 Personal history of colon polyps, unspecified; G47.30 Sleep apnea, unspecified; Z79.82 Long term (current) use of aspirin; Z79.899 Other long term (current) drug therapy; J44.9 Chronic obstructive pulmonary disease, unspecified; F17.210 Nicotine dependence, cigarettes, uncomplicated